=== PATIENT | female | born 1980 | race Two or more races ===

== ENCOUNTER 2019-05-26 16:48 | Emergency (ER) | payer MEDICARE ==
[2019-05-26] MEDS ORDERED: Haloperidol INJ IV/IM* 5 MG/ML AMP IM ONE ×2 (16:54→23:16)
[2019-05-26] MEDS ORDERED: LORazepam INJ* 2 MG/ML 1 ML VIAL IM ONE ×2 (16:54→23:16)
[2019-05-26] MEDS ORDERED: Lorazepam PYXIS KEY PRN (16:54)
[2019-05-26] MEDS ORDERED: Lorazepam PYXIS KEY ONE (17:01)
[2019-05-26] MEDS ORDERED: diPHENhydraMINE IV* 50 MG/ML 1 ml VIAL (BENADRYL) IM ONE ×2 (17:03→23:16)
[2019-05-26] MEDS ORDERED: diPHENhydraMINE IV* 50 MG/ML 1 ml VIAL (BENADRYL) ONE (17:04)
--- NOTE | 2019-05-26 17:10 | ED ---
Psychiatric Complaint - HPI Summary HPI Summary: 39 y/o female presented to [facility] after an episode in which she ran around outside naked screaming. Per her significant other, the two watched Star Wars together, went home, ate, and then the episode began. She has reportedly been up for days without sleeping and has a Hx of bipolar disorder for which she has been off her medication for days. Pt is a level 5 caveat secondary to AMS. - History Of Current Complaint Chief Complaint: EDAltMentalStatus Hx Obtained From: Other: - significant other Hx From Patient Unobtainable Due To: Altered Mental Status - Level 5 Caveat Onset/Duration: Sudden Onset, Still Present Character: Manic Aggravating Factor(s): Nothing Alleviating Factor(s): Nothing Related History: Positive For: Prior Psychiatric Issues - bipolar disorder - Allergies/Home Medications Home Medications: Home Medications Carvedilol [Coreg] 12.5 mg PO BID 05/26/19 [History Confirmed 05/26/19] Divalproex ER TAB(*) [Depakote ER TAB(*)] 1,000 mg PO DAILY 05/26/19 [History Confirmed 05/26/19] Furosemide [Lasix] 80 mg PO DAILY 05/26/19 [History Confirmed 05/26/19] Lisinopril [Zestril] 10 mg PO DAILY 05/26/19 [History Confirmed 05/26/19] Pravastatin Sodium 40 mg PO DAILY 05/26/19 [History Confirmed 05/26/19] Sitagliptin Phosphate [Januvia] 100 mg PO DAILY 05/26/19 [History Confirmed 09/09] Spironolactone 25 mg PO DAILY 05/26/19 [History Confirmed 05/26/19] buPROPion TAB* [Wellbutrin TAB*] 75 mg PO DAILY 05/26/19 [History Confirmed 09/09] glipiZIDE [Glipizide ER] 5 mg PO DAILY 05/26/19 [History Confirmed 05/26/19] PMH/Surg Hx/FS Hx/Imm Hx Endocrine/Hematology History: Reports: Hx Diabetes Psychiatric History: Reports: Hx Bipolar Disorder - Surgical History Surgical History: Unable to Obtain/Confirm Surgery Procedure, Year, and Place: Level 5 Caveat patient under AMS Infectious Disease History: No Infectious Disease History: Denies: Traveled Outside the [place] in Last 30 Days - Family History Known Family History: Positive: Unknown - Patient is a level 5 caveat secondary to AMS - Social History Alcohol Use: Unknown Substance Use Type: Reports: Other - Level 5 Caveat patient under AMS Substance Use Comment - Amount & Last Used: unknown Smoking Status (MU): Unknown if Ever Smoked - Level 5 Caveat patient under AMS Review of Systems Positive: Other - manic, AMS All Other Systems Reviewed And Are Negative: No - Comments Additional Review of Systems Comments: Level 5 Caveat secondary to AMS, bipolar barbie Physical Exam - Summary Physical Exam Summary: Limited exam secondary to pt agitation General: Well appearing, agitated, yelling HEENT: PERRL Cardiovascular: Skin is well perfused Pulmonary: No respiratory distress, no tachypnea Abdomen: Non-distended Skin: Warm, pink, dry MSK: No edema Psych: tangential, hyperverbal Neuro: A&Ox3 Triage Information Reviewed: Yes Vital Signs On Initial Exam: Initial Vitals Temp Pulse Resp BP Pulse Ox 98.9 F 100 20 187/106 99 05/26/19 16:53 05/26/19 16:53 05/26/19 16:53 05/26/19 16:53 05/26/19 16:53 Vital Signs Reviewed: Yes Completion Of Physical Exam Limited Due To: Altered Mental Status, Level 5 Procedures - Sedation Patient Received Moderate/Deep Sedation with Procedure: No Diagnostics - Vital Signs Vital Signs Temp Pulse Resp BP Pulse Ox 05/26/19 16:53 98.9 F 100 20 187/106 99 - Laboratory Result Diagrams: 05/26/19 17:45 05/26/19 17:45 Lab Statement: Any lab studies that have been ordered have been reviewed, and results considered in the medical decision making process. - EKG 2104 Cardiac Rate: NL - 92 bpm EKG Rhythm: Sinus Rhythm Summary of EKG Findings: An EKG at 2104 reveals normal sinus rhythm at 92 bpm. Significant artifact limiting interpretation. ED physician has reviewed and interpreted this report. Re-Evaluation - Re-Evaluation First Eval Re-Evaluation Time: 17:10 Comment: Patient administered chemical restraint (Benadryl, Ativan, Haldol). Second Eval Re-Evaluation Time: 17:30 Comment: Pt has been medically cleared for MHE. Third Eval Re-Evaluation Time: 17:40 Comment: Patient is resting following chemcial restraint. Fourth Eval Re-Evaluation Time: 19:46 Comment: Pt is climbing on the bed and acting out Course/Dx - Course Course Of Treatment: 39-year-old female with a history of bipolar disorder presents with barbie. Patient agitated on arrival throwing herself on the ground and got a sharp spitting up wall. Patient is given Haldol, Benadryl, Ativan for patient safety. labs notable for hyperglycemia, hx DM. Cleared for MHE - Differential Dx/Clinical Impression Provider Diagnosis: Bipolar disorder - Physician Notifications Discussed Care Of Patient With: Christiano Latham Time Discussed With Above Provider: 20:36 Instructed by Provider To: Other - Pt case was discussed with Dr. Latham, who recommends transfer as there are no beds available for admission at [facility]. Patient Is Medically Stable For: Transfer Reason For Transfer: No beds available. Discharge ED - Sign-Out/Discharge Documenting (check all that apply): Sign-Out Patient Signing out patient TO: Leyla Mckinley - Patient is a sign-out to Dr. Leyla Mckinley MD, at change of shift at 2200 on 05/26/19, pending transfer to higher facility of care for mental health treatment. - Discharge Plan Condition: Stable Disposition: TRANS HIGHER LVL OF CARE FAC Referrals: No Primary Care Phys,NOPCP [Primary Care Provider] - - Billing Disposition and Condition Condition: STABLE Disposition: Trans Higher Lvl of Care Fac - Attestation Statements Document Initiated by Óscar: Yes Documenting Scribe: Carly Esparza Provider For Whom Óscar is Documenting (Include Credential): Dr. Syed Leal MD Scribe Attestation: Carly Johnson scribed for Dr. Syed Leal MD on 05/26/19 at 2145. Scribe Documentation Reviewed: Yes Provider Attestation: The documentation as recorded by the Carly cruz accurately reflects the service I personally performed and the decisions made by me, Dr. Syed Leal MD Status of Scribe Document: Viewed - Assessment for Patient Restraint Evaluation of the Patient's Immediate Situation: Patient agitated, yelling, throwing self on floor naked. Unable to redirect Patient's Reaction to Intervention: Patient calm and cooperative after medications Patient's Medication and Behavioral Condition: given haldol, benadryl, ativan
[2019-05-26 17:51] LABS: ABS Basophils 0.1 10^3/ul (0-0.2); ABS Eosinophils 0.1 10^3/ul (0-0.6); ABS Lymphocytes 2.3 10^3/ul (1.0-4.8); ABS Monocytes 0.5 10^3/ul (0-0.8); ABS Neutrophils 6.1 10^3/ul (1.5-7.7); Eosinophil % 1.2 %; Hematocrit 35 % (35-47); Lymphocyte % 25.5 %; Mean Corpuscular HGB Conc 34 g/dL (31-36); Mean Corpuscular Hemoglobin 28 pg (27-31); Mean Corpuscular Volume 83 fL (80-97); Mean Platelet Volume 9.5 fL (7.4-10.4); Nucleated Red Blood Cells % 0.1; Platelet Count 207 10^3/uL (150-450); Red Blood Count 4.25 10^6 /uL (3.70-4.87); Red Cell Distribution Width 14 % (10-15); White Blood Count 9.2 10^3/uL (3.5-10.8)
--- OUTSIDE RECORDS SUMMARY | 2019-05-26 17:53 | XMS REPORT ---
:1980 Author Organization [facility] Care Team Providers Name Role Phone Taye Heriberto Primary Care Physician Unavailable Allergies, Adverse Reactions, Alerts Allergy Code CodeSystem Reaction Severity Criticality Status Start Substance Date Moderate Medications Medication Medication Medication Start Stop Route Dose Status Fill Code CodeSystem Date Date Instructions Abilify [id number] RxNorm 2019-02 IM 400 mg active Inject 1 ml Maintena -16 1 intramuscularly suspens every four weeks ion,ext for 28 day(s) ended rel syring every four weeks Problems Problem Name Code CodeSystem Alternate Alternate Start End Status Narrative Code CodeSystem Date Date Post-traumat [id number] SNOMED-CT Active ic stress 8-13 disorder, unspecified Post-traumat 94953549 SNOMED-CT Active ic stress 8-13 disorder, unspecified Bipolar 56305789 SNOMED-CT Active affective 8-13 disorder, unspecified Bipolar 15533323 SNOMED-CT Active affective 8-13 disorder, unspecified Relevant diagnostic tests/laboratory data Narrative No Information Procedures Procedure Code CodeSystem Target Date of Status Service Device Device Device Name Site Procedure Delivery Code Name UID Location Psychotherap [id number] SNOMED-CT () 2019-02-16 complete Mental y, 45 04 d Health- minutes with [address], [id number] [id number] Psychotherap [id number] SNOMED-CT () 2019-02-21 complete Mental y, 45 04 d Health- minutes with [address], [id number] [phone] Psychotherap [id number] SNOMED-CT () 2019-01-10 complete Mental y, 45 04 d Health- minutes with [address], [id number] [id number] Psychotherap [id number] SNOMED-CT () 2019-03-15 complete Mental y, 45 04 d Health- minutes with [place] patient [address], [id number] [phone] Psychiatric [id number] SNOMED-CT () 2019-02-23 complete Mental diagnostic 85 d Health- evaluation [place] with medical [address], [id number] [id number] Comprehensiv 155084 SNOMED-CT () 2019-02-23 complete Mental e medication 0 d Health- services, [place] per [address] [place] [address], [id number] [phone] Comprehensiv 611859 SNOMED-CT () 2019-03-23 complete Mental e medication 0 d Health- services, [place] per [facility] minutes [address] [place] [address], [id number] [phone] SNOMED-CT () 2019-02-19 complete Mental d Health- [address], [id number] [phone] SNOMED-CT () 2019-02-19 complete Mental d Health- [address], [id number] [phone] SNOMED-CT () 2019-02-19 complete Mental d Health[address], [id number] [phone] SNOMED-CT () 2019-02-19 complete Mental d Health[address], [id number] [id number] SNOMED-CT () 2019-02-19 complete Mental d Health[address], [id number] [id number] SNOMED-CT () 2019-02-19 complete Mental d Health[address], [id number] [phone] SNOMED-CT () 2019-02-19 complete Mental d Health[address], [id number] [id number] SNOMED-CT () 2019-02-19 complete Mental d Health[address], [id number] [phone] SNOMED-CT () 2019-02-19 complete Mental d [address], [id number] [id number] SNOMED-CT () 2019-02-19 complete Mental d [address], [id number] [phone] SNOMED-CT () 2019-02-19 [facility] Mental d [address], [phone] [phone] SNOMED-CT () 2019-02-19 [facility] Mental d [address], [id number] [phone] SNOMED-CT () 2019-02-19 [facility] Mental d [address], [id number] [id number] SNOMED-CT () 2019-01-29 [facility] Mental d [address], [id number] [phone] SNOMED-CT () 2019-02-19 [facility] Mental d [address], [id number] [id number] SNOMED-CT () 2019-01-02 [facility] Mental d [address], [id number] [phone] Encounters/Encounter Diagnoses Encounter Encounter Diagnosis Diagnosis Diagnosis Date of Service Name Code Code Name CodeSystem Diagnosis Delivery Location PROS PROS [id number] Bipolar SNOMED-CT 2019-04-09 Behavioral cumulative affective Health disorder, Clinic , , unspecified , Vital Signs No Information Social History Element Description Description Start End Code CodeSystem AdditionalInfo Date Date SexAssignedAtBirth Female 0 F AdministrativeGender 13 Hospital Discharge Instructions Reason For Referral Medical Equipment FDA Assessments
[2019-05-26 18:08] LABS: ALT 15 U/L (7-52); AST 17 U/L (13-39); Albumin 3.9 g/dL (3.2-5.2); Alkaline Phosphatase 76 U/L (34-104); Anion Gap 12 mmol/L (2-11); BUN/Creatinine Ratio 14.6 (8-20); Blood Urea Nitrogen 12 mg/dL (6-24); CO2 Carbon Dioxide 22 mmol/L (22-32); Calcium 9.4 mg/dL (8.6-10.3); Chloride 100 mmol/L (101-111); EGFR Non-African American 76.8 (>60); Globulin 3.8 g/dL (2-4); Glucose 369 mg/dL (70-100); Potassium 3.7 mmol/L (3.5-5.0); Sodium 134 mmol/L (135-145); Total Protein 7.7 g/dL (6.4-8.9)
[2019-05-26 18:14] LABS: HCG Pregnancy < 0.60 mIU/mL
[2019-05-26 19:03] LABS: Acetaminophen < 15 mcg/mL; Alcohol < 10 mg/dL (<10); Salicylate < 2.50 mg/dL (<30)
[2019-05-26 19:17] LABS: TSH (Thyroid Stimulating Horm) 1.27 mcIU/mL (0.34-5.60)
[2019-05-26] MEDS ORDERED: glipiZIDE TAB* 5 MG PO ONE (20:38)
[2019-05-26] MEDS ORDERED: Divalproex ER TAB(*) 500 MG PO SCH (21:00)
--- NOTE | 2019-05-26 21:59 | ED ---
Progress - Progress Note Progress Note: Patient is received as a sign-out from Dr. Leal to Dr. Mckinley at 05/26/19 2200 shift change pending transfer of this mental health patient. 05 - [facility] accepted [facility] for transfer, requests ED provider discuss patient's case with [facility]. 527 - Discussed patient's case with Dr. Elizabeth Boyer, Dr. Boyer accepts for ED to ED transfer. Re-Evaluation - Re-Evaluation First Eval Re-Evaluation Time: 17:10 Comment: Patient administered chemical restraint (Benadryl, Ativan, Haldol). Second Eval Re-Evaluation Time: 17:30 Comment: Pt has been medically cleared for MHE. Third Eval Re-Evaluation Time: 17:40 Comment: Patient is resting following chemcial restraint. Fourth Eval Re-Evaluation Time: 19:46 Comment: Pt is climbing on the bed and acting out Fifth Eval Re-Evaluation Time: 23:30 Comment: Patient is escalating with bizarre behaviors and with aggressive outburts and uncoopeartive. She has taken all of her clothes off and trying to close curtain. Screaming inappropriate things. Course/Dx - Course Course Of Treatment: Patient is received as a sign-out from Dr. Leal to Dr. Mckinley at 05/26/19 2200 shift change pending transfer of this mental health patient. - Diagnoses Provider Diagnoses: Bipolar disorder - Provider Notifications Discussed Care Of Patient With: Elizabeth Boyer Time Discussed With Above Provider: 05:28 Instructed by Provider To: Other - 527 - Discussed patient's case with Dr. Elizabeth Boyer, Dr. Boyer accepts for ED to ED transfer. Reason For Transfer: No beds available. Discharge ED - Sign-Out/Discharge Documenting (check all that apply): Patient Departure - transfer , Receiving Sign-Out Receiving patient FROM: Syed Leal - Discharge Plan Condition: Stable Disposition: PSYCHIATRIC FACILITY-OTHER Referrals: No Primary Care Phys,NOPCP [Primary Care Provider] - - Billing Disposition and Condition Condition: STABLE Disposition: Psychiatric Facility Other - Attestation Statements Document Initiated by Scribe: Yes Documenting Scribe: SABRA COLE Provider For Whom Scribe is Documenting (Include Credential): ARGENTINA MCKINLEY MD Scribe Attestation: I, SABRA COLE, scribed for ARGENTINA MCKINLEY MD on 05/27/19 at 0607. Scribe Documentation Reviewed: Yes Provider Attestation: The documentation as recorded by the scribeSABRA accurately reflects the service I personally performed and the decisions made by me, ARGENTINA MCKINLEY MD Status of Scribe Document: Viewed - Assessment for Patient Restraint Evaluation of the Patient's Immediate Situation: Patient is escalating with bizarre behaviors and with aggressive outburts and uncoopeartive. She has taken all of her clothes off and trying to close curtain. Screaming inappropriate things. Patient's Reaction to Intervention: Patient sedated effectively and resting comfortably. Patient's Medication and Behavioral Condition: Acutely manic Evaluate Need for Continued Restraint: Terminate - none needed at this time
[2019-05-26 23:13] LABS: Urine Appearance Cloudy; Urine Bilirubin Negative (Negative); Urine Blood Negative (Negative); Urine Color Yellow; Urine Glucose 3+(>=500 mg/dL) (Negative); Urine Ketones 1+ (Negative); Urine Nitrite Negative (Negative); Urine Protein 1+(30 mg/dL) (Negative); Urine Specific Gravity 1.032 (1.010-1.030); Urine Urobilinogen Negative (Negative)
[2019-05-26 23:31] LABS: Urine Benzodiazepine Screen None Detected (None Detect); Urine Opiates Screen None Detected (None Detect)
[2019-05-26 23:32] LABS: Urine Bacteria Absent (Absent); Urine Red Blood Cell Trace(0-2/hpf) (Absent); Urine Squamous Epithelial Cell Present (Absent); Urine White Blood Cell Trace(0-5/hpf) (Absent)
[2019-05-27 06:55] VITALS: BP 154/86
== END 2019-05-27 06:54 ==
LOC: ED 16:48
DX: F31.9 Bipolar disorder, unspecified (principal); Z79.899 Other long term (current) drug therapy; E11.9 Type 2 diabetes mellitus without complications; R41.82 Altered mental status, unspecified
CPT/HCPCS: 36415; 80053; 80307; 80320; 80329; 81003; 81015; 84443; 84702; 85025; 87086; 96372; 99285; A9270-GY; G0480; J1200; J1630; J2060

== ENCOUNTER 2019-06-19 17:27 | Inpatient (IN) | payer MEDICARE ==
--- OUTSIDE RECORDS SUMMARY | 2019-06-19 17:45 | XMS REPORT | Summary of Care ---
:1980 Demographics Phone Unavailable Preferred Language Unknown Marital Status Unknown Yazidi Affiliation Unknown Race Unknown Ethnic Group Unknown Author Organization [facility] Address [address] [place] [address] Care Team Providers Name Role Phone Unavailable Primary Care Provider Unavailable Encounter Details Date Type Department Care Team Description 05/26/2019 Hospital Encounter [address] [address] Allergies Not on Filedocumented as of this encounter (statuses as of 06/10/2019) Medications Not on filedocumented as of this encounter (statuses as of 06/10/2019) Active Problems Not on filedocumented as of this encounter (statuses as of 06/10/2019) Social History Tobacco Use Types Packs/Day Years Used Date Never Assessed Sex Assigned at Date Recorded Not on file Job Start Date Occupation Industry Not on file Not on file Not on file Travel History Travel Start Travel End No recent travel history available. documented as of this encounter Last Filed Vital Signs Not on filedocumented in this encounter Plan of Treatment Not on filedocumented as of this encounter Results Not on filedocumented in this encounter
--- OUTSIDE RECORDS SUMMARY | 2019-06-19 17:45 | XMS REPORT ---
:1980 Author Organization [facility] Care Team Providers Name Role Phone Taye Heriberto Primary Care Physician Unavailable Allergies, Adverse Reactions, Alerts Allergy Code CodeSystem Reaction Severity Criticality Status Start Substance Date Moderate Medications Medication Medication Medication Start Stop Route Dose Status Fill Code CodeSystem Date Date Instructions Abilify [id number] RxNorm 2019-02 IM 400 mg active Inject 1 ml Maintena -16 1 intramuscularly suspens every four weeks ion,ext for 28 day(s) ended rel syring every four weeks Problems Problem Name Code CodeSystem Alternate Alternate Start End Status Narrative Code CodeSystem Date Date Bipolar 05714373 SNOMED-CT Active affective 8-13 disorder, unspecified Bipolar 90303384 SNOMED-CT Active affective 8-13 disorder, unspecified Post-traumat 46751969 SNOMED-CT Active ic stress 8-13 disorder, unspecified Post-traumat 85990119 SNOMED-CT Active ic stress 8-13 disorder, unspecified Relevant diagnostic tests/laboratory data Narrative No Information Procedures Procedure Code CodeSystem Target Date of Status Service Device Device Device Name Site Procedure Delivery Code Name UID Location Psychotherap [id number] SNOMED-CT () 2019-02-16 complete Mental y, 45 04 d Health- minutes with [address], [id number] [phone] Psychotherap 206331 SNOMED-CT () 2019-02-21 complete Mental y, 45 04 d Health- minutes with [address], [phone] [phone] Psychotherap 734505 SNOMED-CT () 2019-01-10 complete Mental y, 45 04 d Health- minutes with [address], [id number] [phone] Psychotherap 692584 SNOMED-CT () 2019-06-05 complete Mental y, 45 04 d Health- minutes with [place] patient [address], [phone] [phone] Psychotherap 004829 SNOMED-CT () 2019-03-15 complete Mental y, 45 04 d Health- minutes with [place] patient [address], [phone] Psychiatric 302734 SNOMED-CT () 2019-02-23 complete Mental diagnostic 85 d Health- evaluation [place] with medical [address], [id number] [phone] Comprehensiv 748509 SNOMED-CT () 2019-02-23 complete Mental e medication 0 d Health- services, [place] per [address] [place] [address], [id number] [phone] Comprehensiv 354264 SNOMED-CT () 2019-03-23 complete Mental e medication 0 d Health- services, [place] [address], [phone] [phone] Comprehensiv 024097 SNOMED-CT () 2019-04-24 complete Mental e medication 0 d Health- services, [place] per [address] [place] [address], [id number] [phone] Comprehensiv 522285 SNOMED-CT () 2019-05-31 complete Mental e medication 0 d Health- services, [place] [address], [id number] [phone] SNOMED-CT () 2019-02-19 complete Mental d Health- [address], [id number] [phone] SNOMED-CT () 2019-02-19 complete Mental d Health- [address], [id number] [phone] SNOMED-CT () 2019-02-19 complete Mental d Health- [address], 655794258 [phone] SNOMED-CT () 2019-02-19 complete Mental d Health- [address], [phone] [phone] SNOMED-CT () 2019-02-19 complete Mental d Health[address], 195644368 [phone] SNOMED-CT () 2019-02-19 complete Mental d [address], 329206646 [phone] SNOMED-CT () 2019-03-22 complete Mental d Health[address], 448178719 [phone] SNOMED-CT () 2019-03-22 complete Mental d [address], 621555290 [phone] SNOMED-CT () 2019-03-22 complete Mental d [address], 666037721 [phone] SNOMED-CT () 2019-03-22 complete Mental d [address], 803566247 [phone] SNOMED-CT () 2019-03-22 complete Mental d Health[address], 267098548 [phone] SNOMED-CT () 2019-03-22 complete Mental d [address], [id number] [phone] SNOMED-CT () 2019-03-22 complete Mental d [address], 613116736 [phone] SNOMED-CT () 2019-03-22 complete Mental d Health[address], 400094188 [phone] SNOMED-CT () 2019-03-22 complete Mental d Health[address], 588590816 [phone] SNOMED-CT () 2019-03-22 complete Mental d [address], 371210864 [id number] SNOMED-CT () 2019-03-22 complete Mental d [address], [id number] [phone] SNOMED-CT () 2019-03-22 complete Mental d Health[address], 195341475 [phone] SNOMED-CT () 2019-03-22 complete Mental d Health[address], 315345747 [phone] SNOMED-CT () 2019-03-22 complete Mental d Health[address], 151873451 [phone] SNOMED-CT () 2019-03-22 complete Mental d Health[address], 561545166 [id number] SNOMED-CT () 2019-03-22 complete Mental d [address], 858139888 [phone] SNOMED-CT () 2019-02-19 complete Mental d Health[address], 837560262 [phone] SNOMED-CT () 2019-03-22 complete Mental d Health[address], [id number] [phone] SNOMED-CT () 2019-03-22 complete Mental d [address], 311678314 [phone] SNOMED-CT () 2019-03-22 complete Mental d Health[address], 126842548 [phone] SNOMED-CT () 2019-03-22 complete Mental d Health[address], 580175359 [phone] SNOMED-CT () 2019-03-22 complete Mental d Health[address], 284675189 [phone] SNOMED-CT () 2019-02-19 complete Mental d [address], 707874762 [phone] SNOMED-CT () 2019-02-19 complete Mental d Health- [address], 182227744 [phone] SNOMED-CT () 2019-02-19 complete Mental d [address], 473266950 [phone] SNOMED-CT () 2019-02-19 complete Mental d [address], 497917317 [phone] SNOMED-CT () 2019-02-19 complete Mental d [address], 956861917 [phone] SNOMED-CT () 2019-02-19 [facility] Mental d [address], [id number] [phone] SNOMED-CT () 2019-01-29 complete Mental d [address], 697595369 [phone] SNOMED-CT () 2019-04-09 complete Mental d [address], 579289189 [phone] SNOMED-CT () 2019-02-19 [facility] Mental d [address], 432468838 [phone] SNOMED-CT () 2019-03-22 [facility] Mental d [address], [id number] [phone] SNOMED-CT () 2019-01-02 [facility] Mental d [address], 119314061 [phone] Encounters/Encounter Diagnoses Encounter Encounter Diagnosis Diagnosis Name Diagnosis Date of Service Name Code Code CodeSystem Diagnosis Delivery Location Non-Billable 20913 [id number] Bipolar SNOMED-CT 2019-06-13 Behavioral affective Health disorder, Clinic , , unspecified , Vital Signs No Information Social History Element Description Description Start End Code CodeSystem AdditionalInfo Date Date SexAssignedAtBirth Female F AdministrativeGender 9-13 Hospital Discharge Instructions Reason For Referral Medical Equipment FDA Assessments
--- OUTSIDE RECORDS SUMMARY | 2019-06-19 17:45 | XMS REPORT ---
:1980 Author Organization [facility] Care Team Providers Name Role Phone Taye Heriberto Primary Care Physician Unavailable Allergies, Adverse Reactions, Alerts Allergy Code CodeSystem Reaction Severity Criticality Status Start Substance Date Moderate Medications Medication Medication Medication Start Stop Route Dose Status Fill Code CodeSystem Date Date Instructions Abilify [id number] RxNorm 2019-02 IM 400 mg active Inject 1 ml Maintena -16 1 intramuscularly suspens every four weeks ion,ext for 28 day(s) ended rel syring every four weeks Problems Problem Name Code CodeSystem Alternate Alternate Start End Status Narrative Code CodeSystem Date Date Bipolar [id number] SNOMED-CT Active affective 8-13 disorder, unspecified Post-traumat 92730192 SNOMED-CT Active ic stress 8-13 disorder, unspecified Post-traumat 25021626 SNOMED-CT Active ic stress 8-13 disorder, unspecified Bipolar 82709803 SNOMED-CT Active affective 8-13 disorder, unspecified Relevant diagnostic tests/laboratory data Narrative No Information Procedures Procedure Code CodeSystem Target Date of Status Service Device Device Device Name Site Procedure Delivery Code Name UID Location Psychotherap [id number] SNOMED-CT () 2019-02-16 complete Mental y, 45 04 d Health- minutes with [address], [id number] [id number] Psychotherap [id number] SNOMED-CT () 2019-02-21 complete Mental y, 45 04 d Health- minutes with [address], [id number] [id number] Psychotherap 525010 SNOMED-CT () 2019-01-10 complete Mental y, 45 04 d Health- minutes with [address], [id number] [phone] Psychotherap [id number] SNOMED-CT () 2019-03-15 complete Mental y, 45 04 d Health- minutes with [facility] patient [address], [id number] [id number] Psychiatric [id number] SNOMED-CT () 2019-02-23 complete Mental diagnostic 85 d Health- evaluation [place] [facility] [place] [address], [id number] [id number] Comprehensiv 480971 SNOMED-CT () 2019-02-23 complete Mental e medication 0 d Health- services, [place] per [facility] [address] [place] [address], [id number] [phone] Comprehensiv 265149 SNOMED-CT () 2019-03-23 complete Mental e medication 0 d Health- services, [place] per 15 [facility] minutes [address] [place] [address], [id number] [phone] Comprehensiv 795381 SNOMED-CT () 2019-04-24 complete Mental e medication 0 d Health- services, [facility] per [address], [id number] [id number] SNOMED-CT () 2019-02-19 complete Mental d Health- [address], [id number] [phone] SNOMED-CT () 2019-02-19 complete Mental d Health- [address], [id number] SNOMED-CT () 2019-02-19 complete Mental d Health- [address], [id number] [phone] SNOMED-CT () 2019-02-19 complete Mental d Health- [address], [id number] [id number] SNOMED-CT () 2019-02-19 complete Mental d Health[address], [id number] SNOMED-CT () 2019-02-19 complete Mental d Health[address], [id number] SNOMED-CT () 2019-03-22 complete Mental d Health[address], [place], [id number] [phone] SNOMED-CT () 2019-03-22 complete Mental d Health[address], [id number] [id number] SNOMED-CT () 2019-03-22 complete Mental d [address], [id number] SNOMED-CT () 2019-03-22 complete Mental d Health[address], [id number] [phone] SNOMED-CT () 2019-03-22 complete Mental d [address], [id number] [phone] SNOMED-CT () 2019-03-22 complete Mental d [address], [id number] [phone] SNOMED-CT () 2019-03-22 complete Mental d Health[address], [id number] SNOMED-CT () 2019-03-22 complete Mental d [address], [id number] [id number] SNOMED-CT () 2019-03-22 complete Mental d [address], [id number] [phone] SNOMED-CT () 2019-03-22 complete Mental d Health[address], [id number] [phone] SNOMED-CT () 2019-03-22 complete Mental d [address], [id number] [id number] SNOMED-CT () 2019-03-22 complete Mental d [address], [id number] [id number] SNOMED-CT () 2019-03-22 complete Mental d [address], [id number] [id number] SNOMED-CT () 2019-03-22 complete Mental d Health[address], [id number] [id number] SNOMED-CT () 2019-03-22 complete Mental d Health[address], [id number] [phone] SNOMED-CT () 2019-03-22 complete Mental d Health[address], [id number] [id number] SNOMED-CT () 2019-02-19 complete Mental d Health[address], [id number] [id number] SNOMED-CT () 2019-03-22 complete Mental d [address], [id number] [id number] SNOMED-CT () 2019-03-22 complete Mental d [address], [id number] [id number] SNOMED-CT () 2019-03-22 complete Mental d Health[address], [id number] [id number] SNOMED-CT () 2019-03-22 complete Mental d [address], [id number] [phone] SNOMED-CT () 2019-03-22 complete Mental d [address], [id number] [phone] SNOMED-CT () 2019-02-19 complete Mental d Health[address], [id number] [id number] SNOMED-CT () 2019-02-19 complete Mental d Health[address], [id number] [phone] SNOMED-CT () 2019-02-19 complete Mental d Health[address], [id number] [id number] SNOMED-CT () 2019-02-19 complete Mental d Health[address], [id number] [id number] SNOMED-CT () 2019-02-19 complete Mental d [address], [id number] [id number] SNOMED-CT () 2019-02-19 complete Mental d [address], [id number] [phone] SNOMED-CT () 2019-04-09 [facility] Mental d [address], [id number] [phone] SNOMED-CT () 2019-01-29 complete Mental d [address], [id number] [phone] SNOMED-CT () 2019-02-19 [facility] Mental d [address], [id number] [phone] SNOMED-CT () 2019-03-22 [facility] Mental d [address], [id number] [id number] SNOMED-CT () 2019-01-02 [facility] Mental d [address], [id number] [phone] Encounters/Encounter Diagnoses Encounter Encounter Diagnosis Diagnosis Diagnosis Date of Service Name Code Code Name CodeSystem Diagnosis Delivery Location [facility] [id number] Bipolar SNOMED-CT 2019-04-26 Behavioral cumulative affective Health disorder, Clinic , , unspecified , Vital Signs No Information Social History Element Description Description Start End Code CodeSystem AdditionalInfo Date Date SexAssignedAtBirth Female F AdministrativeGender 02-02 Hospital Discharge Instructions Reason For Referral Medical Equipment FDA Assessments
--- NOTE | 2019-06-19 18:09 | ED ---
Medical Screening - HPI Summary HPI Summary: Patient presents with progressive thoughts of SI and depression. Patient has history of bipolar and depression, states she has not been fully compliant with her meds which he has episodes. Denies active self-harm currently. Denies EtOH or recreational drug use, any symptoms of illness or pain. Medical history is DM - History of Current Complaint Chief Complaint: EDSuicidal Stated Complaint: MHE PER PT Time Seen by Provider: 06/19/19 18:06 Onset/Duration: Started Weeks Ago Severity: moderate PMH/Surg Hx/FS Hx/Imm Hx Endocrine/Hematology History: Reports: Hx Diabetes Cardiovascular History: Denies: Hx Pacemaker/ICD History: Denies: Hx Dialysis Sensory History: Denies: Hx Eye Prosthesis Opthamlomology History: Denies: Hx Legally Blind EENT History: Denies: Hx Deafness Psychiatric History: Reports: Hx Depression, Hx Post Traumatic Stress Disorder, Hx Bipolar Disorder Denies: Hx Eating Disorder, Hx Schizophrenia, Hx Suicide Attempt - Surgical History Surgery Procedure, Year, and Place: Level 5 Caveat patient under AMS Infectious Disease History: No Infectious Disease History: Denies: Traveled Outside the [place] in Last 30 Days - Family History Known Family History: Positive: Unknown - Patient is a level 5 caveat secondary to AMS - Social History Alcohol Use: Unknown Substance Use Type: Reports: Other - Level 5 Caveat patient under AMS Substance Use Comment - Amount & Last Used: unknown Smoking Status (MU): Unknown if Ever Smoked - Level 5 Caveat patient under AMS Review of Systems Constitutional: Negative Eyes: Negative ENT: Negative Cardiovascular: Negative Respiratory: Negative Gastrointestinal: Negative Genitourinary: Negative Musculoskeletal: Negative Skin: Negative Neurological: Negative Positive: Depressed All Other Systems Reviewed And Are Negative: Yes Physical Exam Triage Information Reviewed: Yes Vital Signs On Initial Exam: Initial Vitals Temp Pulse Resp BP Pulse Ox 97.8 F 70 18 151/93 97 06/19/19 17:27 06/19/19 17:27 06/19/19 17:27 06/19/19 17:27 06/19/19 17:27 Vital Signs Reviewed: Yes Appearance: Positive: Well-Appearing Skin: Positive: Warm Head/Face: Positive: Normal Head/Face Inspection Eyes: Positive: Normal Neck: Positive: Supple Respiratory/Lung Sounds: Positive: Clear to Auscultation Cardiovascular: Positive: Normal Abdomen Description: Positive: Nontender Musculoskeletal: Positive: Normal Neurological: Positive: Normal Psychiatric: Positive: Normal AVPU Assessment: Alert - Cristal Coma Scale Best Eye Response: 4 - Spontaneous Best Motor Response: 6 - Obeys Commands Best Verbal Response: 5 - Oriented Coma Scale Total: 15 Procedures - Sedation Patient Received Moderate/Deep Sedation with Procedure: No Diagnostics - Vital Signs Vital Signs Temp Pulse Resp BP Pulse Ox 06/19/19 17:27 97.8 F 70 18 151/93 97 - Laboratory Result Diagrams: 06/19/19 18:56 06/19/19 18:56 Lab Statement: Any lab studies that have been ordered have been reviewed, and results considered in the medical decision making process. Course/Dx - Course Course Of Treatment: Patient presents with progressive thoughts of SI and depression. Patient has history of bipolar and depression, states she has not been fully compliant with her meds which he has episodes. Denies active self- harm currently. Denies EtOH or recreational drug use, any symptoms of illness or pain. Medical history is DM. Vital signs within normal limits. CBC negative. BGL 444. Improved to 82 L normal saline and 4 units of regular insulin IV. Lactic acid initially 3.4, improved to 1.0 after 2 L normal saline. No indication for DKA. Mental health evaluation recommends admission. - Diagnoses Provider Diagnoses: Depressive disorder Discharge ED - Sign-Out/Discharge Documenting (check all that apply): Patient Departure - Discharge Plan Condition: Stable [facility] [place] Billing Disposition and Condition Condition: STABLE Disposition: Psychiatric Facility [facility]
[2019-06-19 19:15] LABS: ABS Basophils 0.1 10^3/ul (0-0.2); ABS Eosinophils 0.2 10^3/ul (0-0.6); ABS Lymphocytes 2.7 10^3/ul (1.0-4.8); ABS Monocytes 0.6 10^3/ul (0-0.8); ABS Neutrophils 4.5 10^3/ul (1.5-7.7); Eosinophil % 2.3 %; Hematocrit 36 % (35-47); Hemoglobin 12.3 g/dL (12.0-16.0); Lymphocyte % 33.4 %; Mean Corpuscular HGB Conc 34 g/dL (31-36); Mean Corpuscular Hemoglobin 28 pg (27-31); Mean Corpuscular Volume 82 fL (80-97); Mean Platelet Volume 9.7 fL (7.4-10.4); Nucleated Red Blood Cells % 0.2; Platelet Count 169 10^3/uL (150-450); Red Cell Distribution Width 13 % (10-15); White Blood Count 8.1 10^3/uL (3.5-10.8)
[2019-06-19 19:25] LABS: Albumin 3.8 g/dL (3.2-5.2); Anion Gap 9 mmol/L (2-11); CO2 Carbon Dioxide 28 mmol/L (22-32); Calcium 9.5 mg/dL (8.6-10.3); Chloride 94 mmol/L (101-111); Potassium 4.3 mmol/L (3.5-5.0); Sodium 131 mmol/L (135-145)
[2019-06-19 19:31] LABS: ALT 9 U/L (7-52); AST 11 U/L (13-39); Alkaline Phosphatase 74 U/L (34-104); BUN/Creatinine Ratio 14.6 (8-20); Blood Urea Nitrogen 12 mg/dL (6-24); EGFR Non-African American 76.8 (>60); Glucose 432 mg/dL (70-100); Total Protein 7.8 g/dL (6.4-8.9)
[2019-06-19 20:11] LABS: Acetaminophen < 15 mcg/mL; Alcohol < 10 mg/dL (<10); Salicylate < 2.50 mg/dL (<30)
[2019-06-19] MEDS ORDERED: NS 0.9% 1000 ML** 1,000 ML IV ONE ×2 (20:57)
[2019-06-19 21:08] LABS: Urine Appearance Clear; Urine Bilirubin Negative (Negative); Urine Blood Negative (Negative); Urine Color Straw; Urine Glucose 3+(>=500 mg/dL) (Negative); Urine Ketones Negative (Negative); Urine Nitrite Negative (Negative); Urine Protein Negative (Negative); Urine Specific Gravity 1.017 (1.010-1.030); Urine Urobilinogen Negative (Negative)
[2019-06-19 21:12] LABS: Urine Bacteria Absent (Absent); Urine Red Blood Cell Absent (Absent); Urine Squamous Epithelial Cell Present (Absent); Urine White Blood Cell Trace(0-5/hpf) (Absent)
[2019-06-19 21:23] LABS: Urine Benzodiazepine Screen None Detected (None Detect); Urine Opiates Screen None Detected (None Detect)
[2019-06-20] MEDS ORDERED: Insulin REGULAR(*) 1 UNITS UNIT IV PUSH ONE (00:08)
--- NOTE | 2019-06-20 10:16 | ED ---
Course/Dx - Diagnoses Provider Diagnoses: Depressive disorder - Provider Notifications Time Discussed With Above Provider: 10:10 Instructed by Provider To: Other - Mental health research test engine evaluator reviewed case with Dr. Grullon, psychiatry. The patient will be admitted. Discharge ED - Sign-Out/Discharge Documenting (check all that apply): Patient Departure - Discharge Plan Condition: Stable Disposition: [facility] - Attestation Statements Document Initiated by Scribe: Yes Documenting Scribe: Rola Cardenas Provider For Whom Scribe is Documenting (Include Credential): Carlos Licea MD Scribe Attestation: IRola, scribed for Carlos Licea MD on 06/20/19 at 1802. Status of Scribe Document: Ready
[2019-06-20] MEDS ORDERED: Acetaminophen TAB* 325 MG PO PRN (10:43)
[2019-06-20] MEDS ORDERED: Al Hydrox/Mg Hydrox/Simet LIQ* 30 ML UDC PO PRN (10:43)
[2019-06-20] MEDS ORDERED: hydrOXYzine HCL TAB* 50 MG PO PRN (10:46)
[2019-06-20] MEDS ORDERED: traZODone TAB* 50 MG TAB PO PRN (10:46)
[2019-06-20] MEDS: CMCS: SitaGLIPtin (NF) 100 MG TAB PO SCH (14:18)
[2019-06-20] MEDS: Atorvastatin* 10 MG TAB PO SCH (14:19)
[2019-06-20] MEDS: Spironolactone TAB* 25 MG PO SCH (14:19)
[2019-06-20] MEDS: Divalproex DR TAB(*) 500 MG PO SCH ×2 (14:19→21:12)
[2019-06-20] MEDS: glipiZIDE TAB* 5 MG PO SCH (14:20)
[2019-06-20] MEDS: Lisinopril TAB* 10 MG PO SCH (14:20)
[2019-06-20] MEDS: Carvedilol TAB* 6.25 MG PO SCH ×2 (14:52→21:11)
[2019-06-20] MEDS ORDERED: Dextrose 50% Syringe 50 ML* 25 GM/50 ML SYRINGE IV PUSH PRN (16:22)
[2019-06-20] MEDS: Insulin LISPRO* 1 UNITS UNIT SUBCUT SCH ×2 (16:53→21:05)
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
--- NOTE | 2019-06-20 19:26 | CONS ---
HOSPITAL MEDICINE CONSULTATION REPORT: DATE OF CONSULT: 06/20/19 PROVIDER: Inés Caicedo NP ATTENDING PHYSICIAN: Dr. Latham. CONSULTING PHYSICIAN: Dr. Eleazar Reza (dictated by Inés Caicedo NP). REASON FOR CONSULT: Hyperglycemia. HISTORY OF PRESENT ILLNESS: Ms. Meng is a 39-year-old female with a past medical history significant for depression, PTSD, bipolar, type 2 diabetes and hypertension, who presented to the emergency room with suicidal ideation. The patient was seen and evaluated in the emergency room and recommended inpatient treatment for suicidal ideation, so she was admitted to the behavioral health unit. The patient does report a history of diabetes. Reports that she has not been taking her meds for the past several days. It was noted during this admission that the patient's blood sugars were elevated. Due to her hyperglycemia, Hospital Medicine was asked to see and evaluate her and give recommendations for management of her diabetes. The patient does report that she takes Januvia and glipizide at home, but continues to have blood sugars in the 300. The patient also reports that she does not have a glucometer at home and has not checked her blood sugar since her move here in December. So, Hospital Medicine was asked to see her in consultation to help co-manage her diabetes. Please see dictated H and P from Dr. Latham for complete details of her history of present illness. PAST MEDICAL HISTORY: Significant for depression, PTSD, bipolar, type 2 diabetes, and hypertension. PAST SURGICAL HISTORY: None. HOME MEDICATIONS: Include: 1. Hydroxyzine 50 mg p.o. q.4 hours p.r.n. 2. Glipizide 5 mg p.o. daily. 3. Lisinopril 10 mg p.o. daily. 4. Furosemide 80 mg p.o. daily. 5. Depakote 500 mg p.o. b.i.d. 6. Trazodone 50 mg at bedtime p.r.n. 7. Carvedilol 12.5 mg p.o. b.i.d. 8. Abilify 400 mg IM. 9. Spironolactone 25 mg p.o. daily. 10. Januvia 100 mg p.o. daily. 11. Pravastatin 40 mg p.o. daily. ALLERGIES: No known allergies. FAMILY HISTORY: No reported history of diabetes, heart disease, strokes, or cancers within the family. SOCIAL HISTORY: The patient denies any tobacco, alcohol, or illicit drug use. She is engaged. She lives with her partner. Surrogate decision maker in the event she is unable to make her own decisions is her partner, Bahman. She is a full code. REVIEW OF SYSTEMS: She denies any recent fever, chills, unintended weight loss , chest pain, or edema. Denies any cough, hemoptysis, shortness of breath. No nausea, vomiting, or abdominal pain. Denies any gross hematuria, dysuria, focal weakness, or sensory loss. Denies any visual complaints, dysphagia, arthralgias, myalgias, rashes, lesions, open sores, psychosis, or anxiety. PHYSICAL EXAM: General: At this time, Ms. Meng is alert and oriented, sitting in the conference room during this eval, in no acute distress. Vital Signs: Blood pressure 117/67, heart rate 72, respirations 18, O2 saturation 99% , temperature was 97.6. HEENT: Head is atraumatic, normocephalic. Eyes: EOMs are intact. Sclerae anicteric and not pale. Oral mucosa is moist. Neck is supple. Lungs are clear to auscultation bilaterally. No wheezes, rales, or rhonchi. Cardiac: S1, S2. Regular rate and rhythm. No murmurs, rubs, or gallops. Abdomen is soft and nontender. Bowel sounds are present x4. Extremities: She is able to move all 4 extremities. There is no clubbing or cyanosis. Neurologic: She is awake, alert, oriented x3. Speech is clear. Thought process is intact. Skin is intact. DIAGNOSTIC STUDIES/LAB DATA: WBCs are 8.1, RBCs 4.40, hemoglobin 12.3, hematocrit is 36, platelet count 169. Venous ABG; pH was 7.37, pCO2 was 47, pO2 was 68, venous O2 saturation 94.8%. Sodium 131, potassium 4.3, chloride 94 , carbon dioxide was 28, anion gap was 9, BUN was 12, creatinine 0.82, glucose ranged from 374 to 432, calcium was 9.5. ASTs were 11, ALTs were 9, alkaline phosphatase was 74. TSH was 1.80. Initial lactic acid was 3.4, repeat was 1. IMPRESSION AND PLAN: Ms. Meng is a 39-year-old female with a past medical history significant for bipolar, posttraumatic stress disorder, depression, type 2 diabetes and hypertension, who presented to the emergency room with suicidal ideation. Hospital Medicine was asked to see the patient in evaluation to help co- manage her diabetes during this hospitalization. Our recommendations are as follows: 1. Suicidal ideation. Management per Psychiatry. 2. Hyperglycemia. The patient does have a history of type 2 diabetes. I suspect her hyperglycemia is related to not taking her medications for several days. Her Januvia and glipizide were resumed. I will place her on lispro sliding scale with fingersticks a.c. and h.s. I will also recommend hemoglobin A1c, which has been ordered for the morning. We will follow along and adjust her insulin as needed. She will likely require further adjustments to her medications. Will consider adding Lantus if blood sugars do not improve. Would recommend follow up with [facility] for healthy living and endocrinology. 3. Depression, bipolar. Management per Psychiatry. 4. FEN: She should have a consistent carb diet. 5. Code status: She is a full code. 6. DVT prophylaxis: As per Psychiatry. TIME SPENT: Time spent on this consultation was 45 minutes, greater than half that time was spent reviewing events leading thus far to her hospitalization, performing physical exam, and reviewing my plan of care. I have discussed this with my attending, Dr. Eleazar Reza; he is in agreement with my plan. INÉS CAICEDO, MELINA [id number]/[facility] #: [id number] BA
[2019-06-21 08:00] LABS: HDL Cholesterol 31.1 mg/dL
[2019-06-21] MEDS: Insulin LISPRO* 1 UNITS UNIT SUBCUT SCH ×4 (09:13→21:14)
[2019-06-21] MEDS: Atorvastatin* 10 MG TAB PO SCH (09:14)
[2019-06-21] MEDS: Spironolactone TAB* 25 MG PO SCH (09:14)
[2019-06-21] MEDS: CMCS: SitaGLIPtin (NF) 100 MG TAB PO SCH (09:14)
[2019-06-21] MEDS: Lisinopril TAB* 10 MG PO SCH (09:15)
[2019-06-21] MEDS: glipiZIDE TAB* 5 MG PO SCH (09:15)
[2019-06-21] MEDS: Carvedilol TAB* 6.25 MG PO SCH ×2 (09:15→21:15)
[2019-06-21] MEDS: Divalproex DR TAB(*) 500 MG PO SCH ×2 (09:16→21:16)
--- NOTE | 2019-06-22 08:35 | PN ---
Subjective - Subjective Date of Service: 06/21/19 Service Type: 41345 Hosp care 25 min moderate complexity Subjective: Late entry for 06/21/19: Patient continues to present as dysphoric. She reports difficulty with sleep and conflict amongst peers and staff. She states that she purposefully avoided milieu and stayed in her room. She states that she received a call from friends in [place] and that she appreciated the connection but also reminded her of how much she misses them. She states her fiance has been very supportive by visiting often, that he has reached out to seek his own therapist , and signed up for a [employer] family class. Objective - General Observations Appearance: Malodorous Stature: Overweight Posture: WNL Eye Contact: Avoidant Behavior/Activity: WNL - Interaction Observations Attitude Towards Examiner: Cooperative Stated Mood: Dysphoric Affect: Flat Speech Pattern/Tone: Quiet Volume Thought Process: Impoverished Perception: WNL Thought Content: Depressive Thought Process: Lethality: Passive Wish Hallucination Type: Denies Delusion Type: Denies - Cognitive Function Orientation: A&O x 4 Level of Consciousness: Alert Cognition: Impaired Attention/Concentration Estimated Intelligence: Normal Insight: WNL Judgment Within Normal Limits: No Ability to Make Reasonable Decisions: Moderately Impaired - Medication Compliance Cooperative with Inpatient Medication Regimen: Yes - Group Participation Participates in Group Activities: Partial Assessment - Assessment Merits Inpatient Hospitalization: For Immediate Safety, For Stabilization Inpatient DSM-V Dx: F31.4 Clinical Impression: 39yo black female with history of bipolar I d/o, who presented to the ED with her fiance due to depressed mood and suicidal thoughts. She was hospitalized earlier this month during a manic episode at [facility] when our unit was full. She has a history of psychiatric hospitalizations in [place] and [place]. She and her fiance relocated to this area last December as he is a post-doc candidate at [employer]. Patient merits hospitalization for immediate safety and stabilization. Plan - Plan Treatment Plan: Name: SILVER ROONEY Birthdate: 1980 [id number] continue acute intensive psychiatric treatment. may decrease to q30min and allow staff pass. continue current medications. appreciate hospitalist involvement for diabetes management. obtain valproic acid level on am of 06/23/19. Continued Medication Management: Continue Outpt Medication Medications: Current Medications Acetaminophen (Tylenol Tab*) 650 mg PO Q4H PRN PRN Reason: for pain; or Temp >101 F Al Hydrox/Mg Hydrox/Simethicone (Maalox Plus*) 30 ml PO Q4H PRN PRN Reason: INDIGESTION Atorvastatin Calcium (Lipitor*) 10 mg PO DAILY [facility]; Protocol Last Admin: 06/21/19 09:14 Dose: 10 mg Carvedilol (Coreg Tab*) 12.5 mg PO BID [facility] Last Admin: 06/21/19 21:15 Dose: 12.5 mg Dextrose (D50w Syringe 50 Ml*) 12.5 gm IV PUSH .FOR FS < 60 - SS PRN PRN Reason: FS < 60 Divalproex Sodium (Depakote Dr Tab(*)) 500 mg PO BID [facility] Last Admin: 06/21/19 21:16 Dose: 500 mg Glipizide (Glucotrol Tab*) 5 mg PO DAILY [facility] Last Admin: 06/21/19 09:15 Dose: 5 mg Hydroxyzine HCl (Atarax Tab*) 50 mg PO Q4HR PRN PRN Reason: ANXIETY Insulin Human Lispro (Humalog*) 0 units SUBCUT [facility]; Protocol Last Admin: 06/21/19 21:14 Dose: 12 units Lisinopril (Prinivil Tab*) 10 mg PO DAILY [facility] Last Admin: 06/21/19 09:15 Dose: 10 mg Sitagliptin Phosphate (Januvia (Nf)) 100 mg PO DAILY [facility]; Protocol Last Admin: 06/21/19 09:14 Dose: 100 mg Spironolactone (Aldactone Tab*) 25 mg PO DAILY [facility] Last Admin: 06/21/19 09:14 Dose: 25 mg Trazodone HCl (Desyrel Tab*) 50 mg PO BEDTIME PRN PRN Reason: INSOMNIA - Discharge Plan Discharge Plan: Inpatient Hospitalization
[2019-06-22] MEDS: Carvedilol TAB* 6.25 MG PO SCH ×2 (08:37→21:40)
[2019-06-22] MEDS: Divalproex DR TAB(*) 500 MG PO SCH ×2 (08:37→21:40)
[2019-06-22] MEDS: CMCS: SitaGLIPtin (NF) 100 MG TAB PO SCH (08:37)
[2019-06-22] MEDS: Spironolactone TAB* 25 MG PO SCH (08:37)
[2019-06-22] MEDS: Atorvastatin* 10 MG TAB PO SCH (08:37)
[2019-06-22] MEDS: glipiZIDE TAB* 5 MG PO SCH (08:37)
[2019-06-22] MEDS: Lisinopril TAB* 10 MG PO SCH (08:37)
[2019-06-22] MEDS: Insulin LISPRO* 1 UNITS UNIT SUBCUT SCH ×4 (08:40→21:42)
--- NOTE | 2019-06-22 17:23 | PN ---
Subjective - Subjective Date of Service: 06/22/19 Service Type: 05704 Hosp care 25 min moderate complexity Subjective: patient continues to present as dysphoric. she endorses helplessness, decreased concentration and lethargy. she states she is concerned about diabetes management and generally "staying on top of things" when she returns home. Objective - General Observations Appearance: Malodorous Stature: Overweight Posture: WNL, Slumped Eye Contact: Intermittent Behavior/Activity: Slowed - Interaction Observations Attitude Towards Examiner: Cooperative Stated Mood: Dysphoric Affect: Flat - tearful at times Speech Pattern/Tone: Quiet Volume Thought Process: Impoverished Perception: WNL Thought Content: Depressive, Self-Deprecatory Thought Process: Lethality: Passive Wish Hallucination Type: Denies Delusion Type: Denies - Cognitive Function Orientation: A&O x 4 Level of Consciousness: Alert Cognition: Impaired Attention/Concentration Estimated Intelligence: Normal Insight: WNL Judgment Within Normal Limits: No Ability to Make Reasonable Decisions: Moderately Impaired - Medication Compliance Cooperative with Inpatient Medication Regimen: Yes - Group Participation Participates in Group Activities: Yes Assessment - Assessment Merits Inpatient Hospitalization: For Immediate Safety, For Stabilization Inpatient DSM-V Dx: F31.4 Clinical Impression: 39yo black female with history of bipolar I d/o, who presented to the ED with her fiance due to depressed mood and suicidal thoughts. She was hospitalized earlier this month during a manic episode at [facility] when our unit was full. She has a history of psychiatric hospitalizations in [place] and [place]. She and her fiance relocated to this area last December as he is a post-doc candidate at [employer]. Patient merits hospitalization for immediate safety and stabilization. Plan - Plan Treatment Plan: Name: SILVER ROONEY Birthdate: 1980 [id number] continue acute intensive psychiatric treatment. may decrease to q30min and allow staff pass. add lamotrigine 25mg qhs. appreciate hospitalist involvement for diabetes management. obtain valproic acid level on am of 06/23/19. Continued Medication Management: Start Medication Medications: Current Medications Acetaminophen (Tylenol Tab*) 650 mg PO Q4H PRN PRN Reason: for pain; or Temp >101 F Al Hydrox/Mg Hydrox/Simethicone (Maalox Plus*) 30 ml PO Q4H PRN PRN Reason: INDIGESTION Atorvastatin Calcium (Lipitor*) 10 mg PO DAILY [facility]; Protocol Last Admin: 06/22/19 08:37 Dose: 10 mg Carvedilol (Coreg Tab*) 12.5 mg PO BID [facility] Last Admin: 06/22/19 08:37 Dose: 12.5 mg Dextrose (D50w Syringe 50 Ml*) 12.5 gm IV PUSH .FOR FS < 60 - SS PRN PRN Reason: FS < 60 Divalproex Sodium (Depakote Dr Tab(*)) 500 mg PO BID [facility] Last Admin: 06/22/19 08:37 Dose: 500 mg Glipizide (Glucotrol Tab*) 5 mg PO DAILY [facility] Last Admin: 06/22/19 08:37 Dose: 5 mg Hydroxyzine HCl (Atarax Tab*) 50 mg PO Q4HR PRN PRN Reason: ANXIETY Insulin Human Lispro (Humalog*) 0 units SUBCUT ACHS [facility]; Protocol Last Admin: 06/22/19 17:10 Dose: 15 units Lamotrigine (Lamictal Tab(*)) 25 mg PO BEDTIME [facility] Lisinopril (Prinivil Tab*) 10 mg PO DAILY [facility] Last Admin: 06/22/19 08:37 Dose: 10 mg Sitagliptin Phosphate (Januvia (Nf)) 100 mg PO DAILY [facility]; Protocol Last Admin: 06/22/19 08:37 Dose: 100 mg Spironolactone (Aldactone Tab*) 25 mg PO DAILY [facility] Last Admin: 06/22/19 08:37 Dose: 25 mg Trazodone HCl (Desyrel Tab*) 50 mg PO BEDTIME PRN PRN Reason: INSOMNIA - Discharge Plan Discharge Plan: Inpatient Hospitalization
[2019-06-22] MEDS: lamoTRIgine TAB(*) 25 MG PO SCH (21:40)
[2019-06-23] MEDS: Insulin LISPRO* 1 UNITS UNIT SUBCUT SCH ×4 (08:40→21:30)
[2019-06-23] MEDS: Carvedilol TAB* 6.25 MG PO SCH ×2 (08:43→21:17)
[2019-06-23] MEDS: Lisinopril TAB* 10 MG PO SCH (08:43)
[2019-06-23] MEDS: glipiZIDE TAB* 5 MG PO SCH (08:45)
[2019-06-23] MEDS: CMCS: SitaGLIPtin (NF) 100 MG TAB PO SCH (08:46)
[2019-06-23] MEDS: Atorvastatin* 10 MG TAB PO SCH (08:46)
[2019-06-23] MEDS: Spironolactone TAB* 25 MG PO SCH (08:47)
[2019-06-23] MEDS: Divalproex DR TAB(*) 500 MG PO SCH ×2 (13:50→21:16)
[2019-06-23] MEDS: lamoTRIgine TAB(*) 25 MG PO SCH (21:17)
[2019-06-24] MEDS: Insulin LISPRO* 1 UNITS UNIT SUBCUT SCH ×4 (08:02→21:07)
[2019-06-24] MEDS: CMCS: SitaGLIPtin (NF) 100 MG TAB PO SCH (08:30)
[2019-06-24] MEDS: Atorvastatin* 10 MG TAB PO SCH (08:30)
[2019-06-24] MEDS: Carvedilol TAB* 6.25 MG PO SCH ×2 (08:30→20:57)
[2019-06-24] MEDS: glipiZIDE TAB* 5 MG PO SCH (08:30)
[2019-06-24] MEDS: Divalproex DR TAB(*) 500 MG PO SCH ×2 (08:30→20:57)
[2019-06-24] MEDS: Spironolactone TAB* 25 MG PO SCH (08:31)
[2019-06-24] MEDS: Lisinopril TAB* 10 MG PO SCH (08:31)
--- NOTE | 2019-06-24 17:07 | PN ---
Subjective - Subjective Date of Service: 06/24/19 Service Type: 38461 Hosp care 25 min moderate complexity Subjective: Silver continues to be depressed with sadness, anhedonia, poor personal care, feelings of helplessness. Says she has been more positive and hopeful lately with current treatments. Denies SI today. Objective - General Observations Appearance: Well Groomed Appears Stated Age: Yes Stature: Overweight Posture: WNL Eye Contact: Intermittent Behavior/Activity: Slowed - Interaction Observations Attitude Towards Examiner: Cooperative Stated Mood: Dysphoric Affect: Blunted Speech Pattern/Tone: Clear, Appropriate, Quiet Volume Thought Process: Coherent, Goal Directed Perception: WNL Thought Content: WNL Hallucination Type: Denies Delusion Type: Denies - Cognitive Function Level of Consciousness: Awake, Alert, Appropriate Cognition: WNL Estimated Intelligence: Normal Insight: WNL Judgment Within Normal Limits: Yes Ability to Make Reasonable Decisions: Mildly Impaired - Medication Compliance Cooperative with Inpatient Medication Regimen: Yes - Group Participation Participates in Group Activities: Yes Assessment - Assessment Merits Inpatient Hospitalization: For Immediate Safety, For Stabilization, Pending Safe DC Plan Inpatient DSM-V Dx: F31.4 Clinical Impression: 39yo black female with history of bipolar I d/o, who presented to the ED with her fiance due to depressed mood and suicidal thoughts. She was hospitalized earlier this month during a manic episode at [facility] when our unit was full. She has a history of psychiatric hospitalizations in [place] and [place]. She and her fiance relocated to this area last December as he is a post-doc candidate at [employer]. Patient merits hospitalization for immediate safety and stabilization. Plan - Plan Treatment Plan: Name: SILVER ROONEY Birthdate: 1980 [id number] continue acute intensive psychiatric treatment. may decrease to q30min and allow staff pass. add lamotrigine 25mg qhs. appreciate hospitalist involvement for diabetes management. obtain valproic acid level on am of 06/23/19. Continued Medication Management: Continue Outpt Medication Medications: Current Medications Acetaminophen (Tylenol Tab*) 650 mg PO Q4H PRN PRN Reason: for pain; or Temp >101 F Al Hydrox/Mg Hydrox/Simethicone (Maalox Plus*) 30 ml PO Q4H PRN PRN Reason: INDIGESTION Atorvastatin Calcium (Lipitor*) 10 mg PO DAILY [facility]; Protocol Last Admin: 06/24/19 08:30 Dose: 10 mg Carvedilol (Coreg Tab*) 12.5 mg PO BID [facility] Last Admin: 06/24/19 08:30 Dose: 12.5 mg Dextrose (D50w Syringe 50 Ml*) 12.5 gm IV PUSH .FOR FS < 60 - SS PRN PRN Reason: FS < 60 Divalproex Sodium (Depakote Dr Tab(*)) 500 mg PO BID [facility] Last Admin: 06/24/19 08:30 Dose: 500 mg Glipizide (Glucotrol Tab*) 5 mg PO DAILY [facility] Last Admin: 06/24/19 08:30 Dose: 5 mg Hydroxyzine HCl (Atarax Tab*) 50 mg PO Q4HR PRN PRN Reason: ANXIETY Insulin Human Lispro (Humalog*) 0 units SUBCUT ACHS [facility]; Protocol Last Admin: 06/24/19 12:07 Dose: 9 units Lamotrigine (Lamictal Tab(*)) 25 mg PO BEDTIME [facility] Last Admin: 06/23/19 21:17 Dose: 25 mg Lisinopril (Prinivil Tab*) 10 mg PO DAILY [facility] Last Admin: 06/24/19 08:31 Dose: 10 mg Sitagliptin Phosphate (Januvia (Nf)) 100 mg PO DAILY [facility]; Protocol Last Admin: 06/24/19 08:30 Dose: 100 mg Spironolactone (Aldactone Tab*) 25 mg PO DAILY [facility] Last Admin: 06/24/19 08:31 Dose: 25 mg Trazodone HCl (Desyrel Tab*) 50 mg PO BEDTIME PRN PRN Reason: INSOMNIA - Discharge Plan Discharge Plan: Outpatient Follow Up Outpatient Program: [facility]
[2019-06-24] MEDS: lamoTRIgine TAB(*) 25 MG PO SCH (20:57)
[2019-06-25] MEDS: Insulin LISPRO* 1 UNITS UNIT SUBCUT SCH ×3 (08:15→16:58)
[2019-06-25] MEDS: CMCS: SitaGLIPtin (NF) 100 MG TAB PO SCH (09:02)
[2019-06-25] MEDS: Carvedilol TAB* 6.25 MG PO SCH ×2 (09:02→18:00)
[2019-06-25] MEDS: Atorvastatin* 10 MG TAB PO SCH (09:02)
[2019-06-25] MEDS: Lisinopril TAB* 10 MG PO SCH (09:03)
[2019-06-25] MEDS: Spironolactone TAB* 25 MG PO SCH (09:03)
[2019-06-25] MEDS: glipiZIDE TAB* 5 MG PO SCH (09:03)
[2019-06-25] MEDS: Divalproex DR TAB(*) 500 MG PO SCH ×2 (09:03→18:00)
[2019-06-25] MEDS ORDERED: Insulin GLARGINE(*) 1 UNITS UNIT SUBCUT SCH (14:00)
--- NOTE | 2019-06-25 16:36 | DCNOTE ---
Subjective - Subjective Service Types: 70352 Hosp DC Day Mgmt complex over 30 min Discharge Date: 06/25/19 Subjective: Patient reports improved mood and denies SI or passive wish. She presents with improved affect and improved spontaneity in speech. She states she has reached out to peers on the unit and engaged in conversation. She notes she has been "smiling more." She advocates strongly to be discharged, citing acuity of unit to be distressing. Information Security spoke with hospitalist service about diabetes management and patient's desire to be discharged. Information Security encouraged to reach out to Dr Kingston, medieval english literature professor. Office phoned and notified that there is no endocrine coupon redemption clerk today and he is not in [place] on Mondays. Returned call to hospitalist to coordinate discharge medications and supplies for DM. Information Security also spoke with Nicole Merchant RN through [facility] who agrees to follow up with patient at home tomorrow. Objective - General Observations Appearance: Well Groomed Stature: Overweight Posture: WNL Eye Contact: Average Behavior/Activity: WNL - Interaction Observations Attitude Towards Examiner: Cooperative Stated Mood: Euthymic Affect: Bright Speech Pattern/Tone: Clear, Appropriate, Normal Volume Thought Process: Coherent, Goal Directed Perception: WNL Thought Content: WNL Hallucination Type: Denies Delusion Type: Denies - Cognitive Function Orientation: A&O x 4 Level of Consciousness: Alert Cognition: WNL Estimated Intelligence: Normal Insight: WNL Judgment Within Normal Limits: Yes - Medication Compliance Cooperative with Inpatient Medication Regimen: Yes - Group Participation Participates in Group Activities: Yes DC Assessment - Assessment Clinical Impression: 39yo black female with history of bipolar I d/o, who presented to the ED with her fiance due to depressed mood and suicidal thoughts. She was hospitalized earlier this month during a manic episode at [facility] when our unit was full. She has a history of psychiatric hospitalizations in [place] and [place]. She and her fiance relocated to this area last December as he is a post-doc candidate at [place]. Patient reports improvement in mood and denies SI or passive wish. She reports readiness for discharge and agrees to follow up with referrals for mental health and diabetes management. Merits Inpatient Hospitalization: No Clear for Discharge: Adequate Clinical Respons, Acceptable Safety Profile Inpatient DSM-V Dx: F31.4 Discharge Planning - Discharge Planning Discharge Plan: Outpatient Follow Up Outpatient Program: [facility] Recommendations for Continuing Care: Medication Management, Psychotherapy, Routine Metabolic Monitoring, Primary Care Followup, Specialty Followup Medications: Current Medications Atorvastatin Calcium (Lipitor*) 10 mg PO DAILY [facility]; Protocol Last Admin: 06/25/19 09:02 Dose: 10 mg Carvedilol (Coreg Tab*) 12.5 mg PO BID [facility] Last Admin: 06/25/19 09:02 Dose: 12.5 mg Divalproex Sodium (Depakote Dr Tab(*)) 500 mg PO BID [facility] Last Admin: 06/25/19 09:03 Dose: 500 mg Glipizide (Glucotrol Tab*) 5 mg PO DAILY [facility] Last Admin: 06/25/19 09:03 Dose: 5 mg Insulin Glargine (Lantus(*)) 15 units SUBCUT Q24H [facility] Last Admin: 06/25/19 13:58 Dose: 15 units Insulin Human Lispro (Humalog*) 0 units SUBCUT ACHS [facility]; Protocol Last Admin: 06/25/19 12:00 Dose: 12 units Lamotrigine (Lamictal Tab(*)) 25 mg PO BEDTIME [facility] Last Admin: 06/24/19 20:57 Dose: 25 mg Lisinopril (Prinivil Tab*) 10 mg PO DAILY [facility] Last Admin: 06/25/19 09:03 Dose: 10 mg Sitagliptin Phosphate (Januvia (Nf)) 100 mg PO DAILY [facility]; Protocol Last Admin: 06/25/19 09:02 Dose: 100 mg Spironolactone (Aldactone Tab*) 25 mg PO DAILY [facility] Last Admin: 06/25/19 09:03 Dose: 25 mg Trazodone HCl (Desyrel Tab*) 50 mg PO BEDTIME PRN PRN Reason: INSOMNIA Abilify Maintena 400mg IM q4 weeks due 06/28/19 Insulin Lispro and Lantus per Internal Medicine Discharge Planning: Prescriptions provided for discharge [x] Yes [] No Follow up care details as per social work arrangements: [facility]- [facility] Patient response to discharge plan: [x] eager for discharge [x] agreeable with discharge plan [] ambivalent about discharge [] disagrees with discharge today
--- NOTE | 2019-06-25 17:06 | PN ---
Subjective Date of Service: 06/25/19 Interval History: Called by Psych for evaluation as blood sugars remain elevated patient was seen and evaluated in the [facility]. Patient denies lightheaded or dizziness. Denies chest pain or shortness of breath. Denies fever or chills. Reports that she is feeling better Blood sugars reviewed Family History: Unchanged from Admission Social History: Unchanged from Admission Past Medical History: Unchanged from Admission Objective Active Medications: Acetaminophen (Tylenol Tab*) 650 mg PO Q4H PRN PRN Reason: for pain; or Temp >101 F Al Hydrox/Mg Hydrox/Simethicone (Maalox Plus*) 30 ml PO Q4H PRN PRN Reason: INDIGESTION Atorvastatin Calcium (Lipitor*) 10 mg PO DAILY [facility]; Protocol Last Admin: 06/25/19 09:02 Dose: 10 mg Carvedilol (Coreg Tab*) 12.5 mg PO BID [facility] Last Admin: 06/25/19 09:02 Dose: 12.5 mg Dextrose (D50w Syringe 50 Ml*) 12.5 gm IV PUSH .FOR FS < 60 - SS PRN PRN Reason: FS < 60 Divalproex Sodium (Depakote Dr Tab(*)) 500 mg PO BID [facility] Last Admin: 06/25/19 09:03 Dose: 500 mg Glipizide (Glucotrol Tab*) 5 mg PO DAILY [facility] Last Admin: 06/25/19 09:03 Dose: 5 mg Hydroxyzine HCl (Atarax Tab*) 50 mg PO Q4HR PRN PRN Reason: ANXIETY Insulin Glargine (Lantus(*)) 15 units SUBCUT Q24H [facility] Last Admin: 06/25/19 13:58 Dose: 15 units Insulin Human Lispro (Humalog*) 0 units SUBCUT ACHS [facility]; Protocol Last Admin: 06/25/19 12:00 Dose: 12 units Lamotrigine (Lamictal Tab(*)) 25 mg PO BEDTIME [facility] Last Admin: 06/24/19 20:57 Dose: 25 mg Lisinopril (Prinivil Tab*) 10 mg PO DAILY [facility] Last Admin: 06/25/19 09:03 Dose: 10 mg Sitagliptin Phosphate (Januvia (Nf)) 100 mg PO DAILY [facility]; Protocol Last Admin: 06/25/19 09:02 Dose: 100 mg Spironolactone (Aldactone Tab*) 25 mg PO DAILY [facility] Last Admin: 06/25/19 09:03 Dose: 25 mg Trazodone HCl (Desyrel Tab*) 50 mg PO BEDTIME PRN PRN Reason: INSOMNIA Vital Signs - 8 hr 06/25/19 11:34 Respiratory 15 Rate Oxygen Devices in Use Now: None Appearance: alert, calm, no acute distress Eyes: No Scleral Icterus Ears/Nose/Mouth/Throat: Clear Oropharnyx, Mucous Membranes Moist Neck: NL Appearance and Movements; NL JVP, Trachea Midline Respiratory: Symmetrical Chest Expansion and Respiratory Effort, Clear to Auscultation Cardiovascular: NL Sounds; No Murmurs; No JVD, No Edema Abdominal: NL Sounds; No Tenderness; No Distention Extremities: No Edema, No Clubbing, Cyanosis Skin: No Rash or Ulcers Neurological: Alert and Oriented x 3 Nutrition: Taking PO's Result Diagrams: 06/19/19 18:56 06/19/19 18:56 Microbiology and Other Data: Microbiology 06/19/19 20:00 Urine Culture - Final Urine Assess/Plan/Problems-Billing Assessment: Ms. Meng is a 39 y.o female with pmhx of htn and bipolar and DM who presented to the ER with suicidal ideation and was admitted to [facility] for inpatient management . found to have uncontrolled hypertension. - Patient Problems (1) Bipolar 1 disorder, depressed Current Visit: Yes Status: Acute Comment: management per psych (2) Diabetes mellitus Current Visit: Yes Status: Acute Code(s): E11.9 - TYPE 2 DIABETES MELLITUS WITHOUT COMPLICATIONS SNOMED Code(s): 50303853 Comment: Ha1c- 13.1 Continue lispro SS while in the hospital - lantus 15 units daily - continue glipizide and januvia - will add metformin ER 500mg daily - will need glucose testing supplies at discharge - will need to follow up with [facility] [facility] after discharge and follow up with endocrine (3) Hypertension Current Visit: Yes Status: Acute Code(s): I10 - ESSENTIAL (PRIMARY) HYPERTENSION SNOMED Code(s): 79971027 Comment: stable continue home medications Status and Disposition: disposition per psych
[2019-06-25 17:59] VITALS: BP 127/80
[2019-06-25] MEDS: lamoTRIgine TAB(*) 25 MG PO SCH (18:00)
== END 2019-06-25 18:10 | disposition home or self-care (01) | DRG 885 ==
LOC: ED 17:27 → BSU 06-20 10:43
PROVIDERS: ADMIT Psychiatry & Neurology Psychiatry; ATTEND Psychiatry & Neurology Psychiatry
DX: F31.4 Bipolar disorder, current episode depressed, severe, without psychotic features (principal); R45.851 Suicidal ideations; Z68.41 Body mass index [BMI] 40.0-44.9, adult; E11.65 Type 2 diabetes mellitus with hyperglycemia; F43.10 Post-traumatic stress disorder, unspecified; F60.3 Borderline personality disorder; F41.9 Anxiety disorder, unspecified; I10 Essential (primary) hypertension; E66.9 Obesity, unspecified; Z79.899 Other long term (current) drug therapy; Z79.4 Long term (current) use of insulin
CPT/HCPCS: 36415; 80053; 80061; 80164; 80307; 80320; 80329; 81003; 81015; 82803; 82947; 83036; 83605; 84443; 85025; 87086; 99222; 99232; 99238; 99284; A9270-GY; G0480

== ENCOUNTER 2020-03-12 12:12 | Inpatient (IN) ==
[2020-03-12 13:19] LABS: ABS Basophils 0.1 10^3/ul (0-0.2); ABS Eosinophils 0.3 10^3/ul (0-0.6); ABS Monocytes 0.5 10^3/ul (0-0.8); ABS Neutrophils 5.9 10^3/ul (1.5-7.7); Eosinophil % 2.6 %; Hematocrit 37 % (35-47); Hemoglobin 12.3 g/dL (12.0-16.0); Lymphocyte % 31.1 %; Mean Corpuscular HGB Conc 34 g/dL (31-36); Mean Corpuscular Hemoglobin 28 pg (27-31); Mean Corpuscular Volume 84 fL (80-97); Mean Platelet Volume 9.4 fL (7.4-10.4); Platelet Count 237 10^3/uL (150-450); Red Blood Count 4.37 10^6 /uL (3.70-4.87); Red Cell Distribution Width 13 % (10-15); White Blood Count 9.8 10^3/uL (3.5-10.8)
[2020-03-12 13:26] LABS: Urine Appearance Turbid; Urine Bilirubin Negative (Negative); Urine Blood 1+ (Negative); Urine Color Yellow; Urine Glucose 3+(>=500 mg/dL) (Negative); Urine Ketones Trace (Negative); Urine Nitrite Negative (Negative); Urine Protein Negative (Negative); Urine Specific Gravity 1.031 (1.010-1.030); Urine Urobilinogen Negative (Negative)
[2020-03-12 13:35] LABS: Alcohol, S < 10 mg/dL (<10); Salicylate < 2.50 mg/dL (<30)
[2020-03-12 13:36] LABS: Urine Benzodiazepine Screen None Detected (None Detect); Urine Cannabinoids Screen None Detected (None Detect); Urine Opiates Screen None Detected (None Detect)
[2020-03-12 13:37] LABS: ALT 9 U/L (7-52); AST 11 U/L (13-39); Acetaminophen < 15 mcg/mL; Albumin 3.8 g/dL (3.2-5.2); Albumin/Globulin Ratio 0.9 (1-3); Alkaline Phosphatase 90 U/L (34-104); Anion Gap 12 mmol/L (2-11); BUN/Creatinine Ratio 10.3 (8-20); Blood Urea Nitrogen 8 mg/dL (6-24); CO2 Carbon Dioxide 21 mmol/L (22-32); Calcium 9.8 mg/dL (8.6-10.3); Chloride 99 mmol/L (101-111); Globulin 4.3 g/dL (2-4); Glucose 479 mg/dL (70-100); Potassium 4.1 mmol/L (3.5-5.0); Sodium 132 mmol/L (135-145); Total Protein 8.1 g/dL (6.4-8.9)
[2020-03-12 13:42] LABS: HCG Pregnancy < 0.60 mIU/mL
[2020-03-12 13:48] LABS: Urine Squamous Epithelial Cell Present (Absent)
[2020-03-12 13:49] LABS: Urine Red Blood Cell Trace(0-2/hpf) (Absent); Urine White Blood Cell 1+(6-10/hpf) (Absent)
[2020-03-12] MEDS ORDERED: Al Hydrox/Mg Hydrox/Simet LIQ 30 ML UDC PO PRN (15:50)
[2020-03-13 07:57] LABS: HDL Cholesterol 31.2 mg/dL
[2020-03-13] MEDS ORDERED: LORazepam 2 mg VIAL 1 ml ONE (08:41)
[2020-03-13] MEDS ORDERED: Haloperidol 5 mg/ml SDV IV/IM 5 MG/ML AMP ONE ×2 (08:41→08:58)
[2020-03-13] MEDS ORDERED: Lorazepam PYXIS KEY ONE (08:42)
[2020-03-13] MEDS ORDERED: diPHENhydraMINE IV 50 MG/ML 1 ml VIAL (BENADRYL) ONE (08:58)
[2020-03-13] MEDS ORDERED: diPHENhydraMINE IV 50 MG/ML 1 ml VIAL (BENADRYL) IM ONE (09:09)
[2020-03-13] MEDS ORDERED: LORazepam 2 mg VIAL 1 ml IM ONE (09:09)
[2020-03-13] MEDS ORDERED: Haloperidol 5 mg/ml SDV IV/IM 5 MG/ML AMP IM ONE ×2 (09:09)
[2020-03-13] MEDS: Insulin GLARGINE 100 un/ml 10 ml VIAL SUBCUT SCH (14:45)
[2020-03-14] MEDS: CMCS:SitaGLIPtin 100 mg TAB (NF) PO SCH ×2 (11:43→11:47)
[2020-03-14] MEDS: Insulin GLARGINE 100 un/ml 10 ml VIAL SUBCUT SCH (11:43)
[2020-03-14] MEDS ORDERED: diPHENhydraMINE IV 50 MG/ML 1 ml VIAL (BENADRYL) IM ONE (16:37)
[2020-03-14] MEDS ORDERED: diPHENhydraMINE IV 50 MG/ML 1 ml VIAL (BENADRYL) ONE (16:37)
[2020-03-14] MEDS ORDERED: LORazepam 2 mg VIAL 1 ml ONE (16:38)
[2020-03-14] MEDS ORDERED: Lorazepam PYXIS KEY ONE (16:38)
[2020-03-14] MEDS ORDERED: LORazepam 2 mg VIAL 1 ml IM ONE (16:38)
[2020-03-14] MEDS ORDERED: Haloperidol 5 mg/ml SDV IV/IM 5 MG/ML AMP IM ONE ×2 (16:39→18:45)
[2020-03-14] MEDS ORDERED: Haloperidol 5 mg/ml SDV IV/IM 5 MG/ML AMP ONE ×2 (16:39→18:45)
[2020-03-15] MEDS: Insulin GLARGINE 100 un/ml 10 ml VIAL SUBCUT SCH (14:14)
[2020-03-15] MEDS: CMCS:SitaGLIPtin 100 mg TAB (NF) PO SCH (14:14)
[2020-03-16] MEDS: CMCS:SitaGLIPtin 100 mg TAB (NF) PO SCH (09:46)
[2020-03-16] MEDS: Insulin GLARGINE 100 un/ml 10 ml VIAL SUBCUT SCH (09:46)
[2020-03-17] MEDS: CMCS:SitaGLIPtin 100 mg TAB (NF) PO SCH (12:01)
[2020-03-17] MEDS: Insulin GLARGINE 100 un/ml 10 ml VIAL SUBCUT SCH (12:03)
[2020-03-18] MEDS: CMCS:SitaGLIPtin 100 mg TAB (NF) PO SCH (10:08)
[2020-03-18] MEDS: Insulin GLARGINE 100 un/ml 10 ml VIAL SUBCUT SCH (10:36)
[2020-03-18] MEDS ORDERED: Insulin GLARGINE 100 un/ml 10 ml VIAL SUBCUT ONE (10:48)
[2020-03-18] MEDS: Insulin ISOPH/REG 70/30 SUBCUT SCH (16:52)
[2020-03-19] MEDS ORDERED: Insulin GLARGINE 100 un/ml 10 ml VIAL SUBCUT SCH (09:00)
[2020-03-19] MEDS: Insulin ISOPH/REG 70/30 SUBCUT SCH ×2 (10:16→17:01)
[2020-03-19] MEDS ORDERED: HYDROcodone/ACETAMIN 5/325 mg TAB PO STA (13:37)
[2020-03-20 09:22] VITALS: BP 124/76
[2020-03-20] MEDS: Insulin ISOPH/REG 70/30 SUBCUT SCH (09:51)
[2020-03-21] MEDS ORDERED: Insulin ISOPH/REG 70/30 SUBCUT SCH (08:00)
== END 2020-03-20 15:15 | disposition home health service (06) | DRG 876 ==
LOC: ED 12:12 → BSU 15:50
PROVIDERS: ADMIT Psychiatry & Neurology Psychiatry; ATTEND Psychiatry & Neurology Psychiatry

== ENCOUNTER 2020-11-16 19:08 | Inpatient (IN) ==
[2020-11-16] MEDS ORDERED: LORazepam 2 mg VIAL 1 ml IM ONE (19:48)
[2020-11-16] MEDS ORDERED: Lorazepam PYXIS KEY PRN (19:48)
[2020-11-16] MEDS ORDERED: Droperidol 5 MG/2 ML 2 ML VIAL IM ONE (19:48)
[2020-11-16 21:32] LABS: ABS Basophils 0.1 10^3/ul (0-0.2); ABS Eosinophils 0.1 10^3/ul (0-0.6); ABS Lymphocytes 3.7 10^3/ul (1.0-4.8); ABS Monocytes 0.6 10^3/ul (0-0.8); ABS Neutrophils 3.9 10^3/ul (1.5-7.7); Eosinophil % 1.5 %; Hematocrit 35 % (35-47); Hemoglobin 11.6 g/dL (12.0-16.0); Lymphocyte % 43.9 %; Mean Corpuscular HGB Conc 33 g/dL (31-36); Mean Corpuscular Hemoglobin 27 pg (27-31); Mean Corpuscular Volume 83 fL (80-97); Mean Platelet Volume 9.5 fL (7.4-10.4); Nucleated Red Blood Cells % 0.1; Platelet Count 187 10^3/uL (150-450); Red Blood Count 4.22 10^6 /uL (3.70-4.87); Red Cell Distribution Width 15 % (10-15); White Blood Count 8.3 10^3/uL (3.5-10.8)
[2020-11-16 21:47] LABS: ALT 12 U/L (7-52); AST 16 U/L (13-39); Albumin 3.5 g/dL (3.2-5.2); Alkaline Phosphatase 76 U/L (35-149); Anion Gap 11 mmol/L (2-11); Blood Urea Nitrogen 14 mg/dL (6-24); CO2 Carbon Dioxide 22 mmol/L (22-32); Calcium 9.1 mg/dL (8.6-10.3); Chloride 100 mmol/L (101-111); EGFR African American 83.1 (>60); EGFR Non-African American 68.7 (>60); Globulin 3.6 g/dL (2-4); Glucose 323 mg/dL (70-100); Potassium 4.2 mmol/L (3.5-5.0); Sodium 133 mmol/L (135-145); Total Protein 7.1 g/dL (6.4-8.9)
[2020-11-16 21:52] LABS: HCG Pregnancy < 0.60 mIU/mL
[2020-11-16 22:12] LABS: Acetaminophen < 15 mcg/mL; Alcohol, S < 10 mg/dL (<10); Salicylate < 2.50 mg/dL (<30)
[2020-11-16 22:25] LABS: TSH Ultra Thyroid Stim Horm 1.91 mcIU/mL (0.34-5.60)
[2020-11-17] MEDS ORDERED: Al Hydrox/Mg Hydrox/Simet LIQ 30 ML UDC PO PRN (11:09)
[2020-11-17] MEDS: Insulin ISOPH/REG 70/30 SUBCUT SCH (18:44)
[2020-11-18 08:19] LABS: HDL Cholesterol 33.4 mg/dL
[2020-11-18] MEDS: Insulin ISOPH/REG 70/30 SUBCUT SCH ×2 (13:18→22:29)
[2020-11-18] MEDS ORDERED: Dextrose 50% Syringe 50 ml 25 GM/50 ML SYRINGE IV PUSH PRN (13:36)
[2020-11-19] MEDS: Insulin ISOPH/REG 70/30 SUBCUT SCH ×2 (09:17→18:07)
[2020-11-20] MEDS: Insulin ISOPH/REG 70/30 SUBCUT SCH ×2 (11:57→18:28)
[2020-11-21] MEDS: Insulin ISOPH/REG 70/30 SUBCUT SCH ×2 (09:28→18:09)
[2020-11-22] MEDS: Insulin ISOPH/REG 70/30 SUBCUT SCH ×2 (08:50→18:50)
[2020-11-23] MEDS: Insulin ISOPH/REG 70/30 SUBCUT SCH ×2 (09:17→18:00)
[2020-11-24] MEDS: Insulin ISOPH/REG 70/30 SUBCUT SCH ×2 (08:54→17:47)
[2020-11-25] MEDS: Insulin ISOPH/REG 70/30 SUBCUT SCH (09:11)
[2020-11-25 10:34] VITALS: BP 131/62
== END 2020-11-25 11:57 | disposition home or self-care (01) | DRG 885 ==
LOC: ED 19:08 → BSU 11-17 00:25
PROVIDERS: ADMIT Psychiatry & Neurology Psychiatry; ATTEND Psychiatry & Neurology Psychiatry

== ENCOUNTER 2021-06-12 12:20 | Emergency (ER) ==
[2021-06-12] MEDS ORDERED: Albuterol/Ipratropium NEB.SOL (2.5/0.5 MG) 3 ML NEB.SOLN INH ONE (13:01)
[2021-06-12 13:45] LABS: ABS Eosinophils 0.1 10^3/ul (0-0.6); ABS Monocytes 0.5 10^3/ul (0-0.8); ABS Neutrophils 4.8 10^3/ul (1.5-7.7); Eosinophil % 1.1 %; Hematocrit 36 % (35-47); Lymphocyte % 35.2 %; Mean Corpuscular HGB Conc 33 g/dL (31-36); Mean Corpuscular Hemoglobin 27 pg (27-31); Mean Corpuscular Volume 81 fL (80-97); Mean Platelet Volume 9.8 fL (7.4-10.4); Nucleated Red Blood Cells % 0.1; Platelet Count 187 10^3/uL (150-450); Red Blood Count 4.44 10^6 /uL (3.70-4.87); Red Cell Distribution Width 16 % (10-15); White Blood Count 8.5 10^3/uL (3.5-10.8)
[2021-06-12 14:02] LABS: ALT 11 U/L (7-52); AST 12 U/L (13-39); Albumin 3.8 g/dL (3.2-5.2); Alkaline Phosphatase 84 U/L (35-149); Anion Gap 6 mmol/L (2-11); Blood Urea Nitrogen 11 mg/dL (6-24); C Reactive Protein 5.24 mg/L (<8.01); CO2 Carbon Dioxide 27 mmol/L (22-32); Calcium 9.4 mg/dL (8.6-10.3); Chloride 101 mmol/L (101-111); Globulin 3.8 g/dL (2-4); Glucose 167 mg/dL (70-100); Potassium 4.1 mmol/L (3.5-5.0); Sodium 134 mmol/L (135-145); Total Protein 7.6 g/dL (6.4-8.9); eGFR CKD-EPI 114.1 (>60)
[2021-06-12 14:08] LABS: Activated Partial Thrombo Time 29.9 seconds (26.0-38.0); INR 1.03 (0.86-1.15); Troponin I 0.04 ng/mL (<0.03)
[2021-06-12] MEDS ORDERED: Iodixanol (CONTRAST) 320 MG/ML 100 ML SDV IV ONE (17:25)
[2021-06-12 17:47] LABS: Troponin I 0.04 ng/mL (<0.03)
[2021-06-12] MEDS ORDERED: Dexamethasone IV 4 MG/ML 5 ML VIAL (20 MG) IVPB ONE (18:26)
[2021-06-12] MEDS ORDERED: cefTRIAXone 1 gm/50 mL NS BAG 1 GM/50 ML BAG IV ONE (18:29)
[2021-06-12] MEDS ORDERED: Dexamethasone IV 10 MG in NS 0.9% 50 ML IVPB ONE (19:00)
[2021-06-12] MEDS ORDERED: Furosemide 20 mg/2 ml IV VIAL IV ONE (21:11)
[2021-06-12] MEDS ORDERED: Dextrose 50% Syringe 50 ml 25 GM/50 ML SYRINGE IV PUSH PRN (21:16)
[2021-06-12 21:47] LABS: Magnesium 1.6 mg/dL (1.9-2.7)
[2021-06-12 21:56] LABS: TSH Ultra Thyroid Stim Horm 1.59 mcIU/mL (0.34-5.60)
[2021-06-12] MEDS ORDERED: Albuterol HFA INHALER 8 gm MDI INH SCH (22:00)
[2021-06-12 22:19] VITALS: BP 188/107
[2021-06-13] MEDS ORDERED: Furosemide 20 mg/2 ml IV VIAL IV SCH (08:00)
[2021-06-13] MEDS ORDERED: NF: Dulaglutide (NF) 1.5 MG/0.5 ML SYRINGE SUBCUT SCH (09:00)
== END 2021-06-12 22:32 | disposition home or self-care (01) ==
LOC: ED 12:20 → EDHOLD 12:20 → SUATTDRO 21:08 → ED 22:32 → EDHOLD 22:32
PROVIDERS: ATTEND Internal Medicine

== ENCOUNTER 2021-11-15 22:39 | Inpatient (IN) ==
[2021-11-15 23:38] LABS: Urine Appearance Cloudy; Urine Bilirubin Negative (Negative); Urine Blood Negative (Negative); Urine Color Yellow; Urine Glucose 3+(>=500 mg/dL) (Negative); Urine Ketones Trace (Negative); Urine Nitrite Negative (Negative); Urine Protein 2+(100 mg/dL) (Negative); Urine Specific Gravity 1.029 (1.002-1.030); Urine Urobilinogen Negative (Negative)
[2021-11-15 23:39] LABS: Urine Bacteria Absent (Absent); Urine Red Blood Cell Trace(0-2/hpf) (Absent); Urine Squamous Epithelial Cell Present (Absent); Urine White Blood Cell Trace(0-5/hpf) (Absent)
[2021-11-15 23:51] LABS: Urine Benzodiazepine Screen None Detected (None Detect); Urine Cannabinoids Screen None Detected (None Detect); Urine Opiates Screen None Detected (None Detect)
[2021-11-15 23:55] LABS: ABS Basophils 0.1 10^3/ul (0-0.2); ABS Eosinophils 0.1 10^3/ul (0-0.6); ABS Monocytes 0.6 10^3/ul (0-0.8); ABS Neutrophils 3.3 10^3/ul (1.5-7.7); Eosinophil % 1.6 %; Hematocrit 35 % (35-47); Hemoglobin 11.2 g/dL (12.0-16.0); Lymphocyte % 42.5 %; Mean Corpuscular HGB Conc 32 g/dL (31-36); Mean Corpuscular Hemoglobin 26 pg (27-31); Mean Corpuscular Volume 83 fL (80-97); Mean Platelet Volume 9.5 fL (7.4-10.4); Nucleated Red Blood Cells % 0.1; Platelet Count 163 10^3/uL (150-450); Red Blood Count 4.23 10^6 /uL (3.70-4.87); Red Cell Distribution Width 16 % (10-15); White Blood Count 7.1 10^3/uL (3.5-10.8)
[2021-11-16 00:44] LABS: ALT 18 U/L (7-52); AST 27 U/L (13-39); Acetaminophen < 15 mcg/mL; Albumin 3.8 g/dL (3.2-5.2); Albumin/Globulin Ratio 1.2 (1-3); Alcohol, S < 13 mg/dL (<13); Alkaline Phosphatase 77 U/L (35-149); Anion Gap 8 mmol/L (2-11); Blood Urea Nitrogen 16 mg/dL (6-24); CO2 Carbon Dioxide 26 mmol/L (22-32); Calcium 8.9 mg/dL (8.6-10.3); Chloride 105 mmol/L (101-111); Globulin 3.2 g/dL (2-4); Glucose 192 mg/dL (70-100); Potassium 3.9 mmol/L (3.5-5.0); Salicylate < 2.50 mg/dL (<30); Sodium 139 mmol/L (135-145); eGFR CKD-EPI 87.1 (>60)
[2021-11-16 00:56] LABS: TSH Ultra Thyroid Stim Horm 3.03 mcIU/mL (0.34-5.60)
[2021-11-16] MEDS ORDERED: Al Hydrox/Mg Hydrox/Simet LIQ 30 ML UDC PO PRN (07:53)
[2021-11-16 08:40] VITALS: BP 152/86
[2021-11-16] MEDS: Insulin ISOPH/REG 70/30 SUBCUT SCH (10:11)
[2021-11-16] MEDS: Vitamin THERAPEUTIC TAB PO SCH (10:13)
[2021-11-16 11:26] LABS: HCG Pregnancy < 0.60 mIU/mL
[2021-11-16] MEDS ORDERED: Albuterol HFA INHALER 8 gm MDI INH PRN (15:49)
[2021-11-16] MEDS ORDERED: Insulin ISOPH/REG 70/30 SUBCUT SCH (21:00)
[2021-11-17] MEDS: Insulin ISOPH/REG 70/30 SUBCUT SCH (10:44)
[2021-11-17] MEDS: Vitamin THERAPEUTIC TAB PO SCH (10:44)
== END 2021-11-17 14:45 | disposition home or self-care (01) | DRG 883 ==
LOC: ED 22:39 → BSU 11-16 07:43
PROVIDERS: ADMIT Psychiatry & Neurology Psychiatry; ATTEND Psychiatry & Neurology Psychiatry

== ENCOUNTER 2021-11-17 20:52 | Inpatient (IN) ==
[2021-11-18] MEDS ORDERED: OLANZapine IM (NF) 10 MG VIAL IM ONE ×2 (05:32→06:29)
[2021-11-18] MEDS ORDERED: Sterile Water for Inj 10 ML ONE (05:45)
[2021-11-18] MEDS ORDERED: LORazepam 2 mg VIAL 1 ml IM ONE (06:29)
[2021-11-18] MEDS ORDERED: Lorazepam PYXIS KEY PRN (06:29)
[2021-11-18 08:13] LABS: ABS Basophils 0.1 10^3/ul (0-0.2); ABS Eosinophils 0.1 10^3/ul (0-0.6); ABS Lymphocytes 3.7 10^3/ul (1.0-4.8); ABS Monocytes 0.6 10^3/ul (0-0.8); ABS Neutrophils 3.6 10^3/ul (1.5-7.7); Eosinophil % 1.4 %; Hematocrit 37 % (35-47); Hemoglobin 12.2 g/dL (12.0-16.0); Lymphocyte % 45.5 %; Mean Corpuscular HGB Conc 33 g/dL (31-36); Mean Corpuscular Hemoglobin 27 pg (27-31); Mean Corpuscular Volume 83 fL (80-97); Mean Platelet Volume 9.2 fL (7.4-10.4); Nucleated Red Blood Cells % 0.1; Platelet Count 164 10^3/uL (150-450); Red Blood Count 4.45 10^6 /uL (3.70-4.87); Red Cell Distribution Width 16 % (10-15)
[2021-11-18 08:52] LABS: ALT 19 U/L (7-52); Acetaminophen < 15 mcg/mL; Albumin 3.8 g/dL (3.2-5.2); Albumin/Globulin Ratio 1.1 (1-3); Alcohol, S < 13 mg/dL (<13); Alkaline Phosphatase 90 U/L (35-149); Blood Urea Nitrogen 11 mg/dL (6-24); CO2 Carbon Dioxide 26 mmol/L (22-32); Calcium 9.4 mg/dL (8.6-10.3); Chloride 101 mmol/L (101-111); Globulin 3.5 g/dL (2-4); Glucose 207 mg/dL (70-100); Salicylate < 2.50 mg/dL (<30); Sodium 135 mmol/L (135-145); Total Protein 7.3 g/dL (6.4-8.9); eGFR CKD-EPI 96.6 (>60)
[2021-11-18 09:04] LABS: Anion Gap 8 mmol/L (2-11)
[2021-11-18 09:07] LABS: TSH Ultra Thyroid Stim Horm 2.55 mcIU/mL (0.34-5.60)
[2021-11-18] MEDS ORDERED: Al Hydrox/Mg Hydrox/Simet LIQ 30 ML UDC PO PRN (10:50)
[2021-11-18] MEDS ORDERED: Albuterol HFA INHALER 8 gm MDI INH PRN (12:20)
[2021-11-18 13:02] LABS: Magnesium 1.9 mg/dL (1.9-2.7)
[2021-11-18 13:13] LABS: Potassium Redraw 4.2 mmol/L (3.5-5.0)
[2021-11-18] MEDS: Insulin ISOPH/REG 70/30 SUBCUT SCH (22:19)
[2021-11-19] MEDS: Insulin ISOPH/REG 70/30 SUBCUT SCH ×3 (09:18→19:55)
[2021-11-19] MEDS: Vitamin THERAPEUTIC TAB PO SCH (09:18)
[2021-11-20] MEDS: Insulin ISOPH/REG 70/30 SUBCUT SCH (09:11)
[2021-11-20] MEDS: Vitamin THERAPEUTIC TAB PO SCH (09:13)
[2021-11-20 19:39] VITALS: BP 152/99
== END 2021-11-20 19:55 | disposition home health service (06) | DRG 883 ==
LOC: ED 20:52 → EDHOLD 11-18 10:50 → BSU 11-18 12:10
PROVIDERS: ADMIT Psychiatry & Neurology Psychiatry; ATTEND Psychiatry & Neurology Psychiatry

== ENCOUNTER 2024-05-02 09:27 | Inpatient (IN) ==
[2024-05-02] MEDS: Furosemide 40 mg/4 ml IV VIAL IV ONE (10:05)
[2024-05-02] MEDS: Labetalol IV 5 MG/ML 20 ml VIAL IV PUSH ONE (10:06)
[2024-05-02 10:12] LABS: ABS Basophils 0.1 10^3/uL (0.0-0.1); ABS Eosinophils 0.2 10^3/uL (0.0-0.5); ABS Monocytes 0.5 10^3/uL (0.0-0.9); ABS Neutrophils 5.3 10^3/uL (1.5-7.6); ABS Nucleated RBC 0.01 10^3/ul; Eosinophil % 2.6 %; Hematocrit 40.7 % (35-45); Lymphocyte % 33.1 %; Mean Corpuscular Hemoglobin 28.2 pg (27-33); Mean Corpuscular Hgb Conc 34.5 g/dL (31-36); Mean Corpuscular Volume 81.8 fL (80-97); Mean Platelet Volume 9.6 fL (7.5-11.2); Nucleated Red Blood Cells % 0.1 %/100WBC (0.0-0.8); Platelet Count 170 10^3/uL (150-450); Red Blood Count 4.97 10^6/uL (3.63-4.92); Red Cell Distribution Width 14.2 % (12-17)
[2024-05-02 10:38] LABS: High Sens Troponin Baseline 19 pg/mL (<15)
[2024-05-02 10:51] LABS: ALT 16 U/L (7-52); AST 16 U/L (13-39); Albumin/Globulin Ratio 1.1 (1-3); Alkaline Phosphatase 101 U/L (35-149); Anion Gap 9 mmol/L (2-16); Blood Urea Nitrogen 11 mg/dL (6-24); CO2 Carbon Dioxide 26 mmol/L (22-32); Calcium 9.6 mg/dL (8.6-10.3); Chloride 102 mmol/L (101-111); Creatinine, Serum 0.76 mg/dL (0.51-0.95); Globulin 3.7 g/dL (2-4); Glucose 207 mg/dL (70-100); Lipase 20 U/L (11.0-82.0); Potassium 4.1 mmol/L (3.5-5.0); Sodium 137 mmol/L (135-145); Total Bilirubin 0.8 mg/dL (0.2-1.0); Total Protein 7.7 g/dL (6.4-8.9); eGFR CKD-EPI 97.8 (>60)
[2024-05-02 10:58] LABS: HCG Pregnancy < 0.60 mIU/mL
[2024-05-02 12:03] LABS: High Sensitivity Troponin 1 Hr 20 pg/mL (<15)
[2024-05-02 12:07] LABS: Urine Appearance Clear; Urine Bilirubin Negative (Negative); Urine Blood Negative (Negative); Urine Color Colorless; Urine Glucose Negative (Negative); Urine Ketones Negative (Negative); Urine Nitrite Negative (Negative); Urine Protein Negative (Negative); Urine Specific Gravity 1.006 (1.002-1.030); Urine Urobilinogen Negative (Negative); Urine pH 5.5 (5.0-8.0)
[2024-05-02] MEDS: Heparin DRIP 25,000 UNITS BAG 25,000 UNITS/250 ML BAG IV SCH (13:39)
[2024-05-02] MEDS: Heparin 5000 UNITS/ML 1 mL VIAL IV SCH (13:39)
[2024-05-02 13:44] LABS: ABS Basophils 0.1 10^3/uL (0.0-0.1); ABS Eosinophils 0.2 10^3/uL (0.0-0.5); ABS Monocytes 0.5 10^3/uL (0.0-0.9); ABS Neutrophils 5.2 10^3/uL (1.5-7.6); ABS Nucleated RBC 0.01 10^3/ul; Eosinophil % 2.3 %; Hematocrit 40.7 % (35-45); Hemoglobin 13.8 g/dL (11.5-14.3); Lymphocyte % 33.3 %; Mean Corpuscular Hemoglobin 27.7 pg (27-33); Mean Corpuscular Volume 81.6 fL (80-97); Mean Platelet Volume 9.7 fL (7.5-11.2); Nucleated Red Blood Cells % 0.1 %/100WBC (0.0-0.8); Platelet Count 172 10^3/uL (150-450); Red Blood Count 4.99 10^6/uL (3.63-4.92); Red Cell Distribution Width 14.4 % (12-17)
[2024-05-02] MEDS: Sulfur Hexaflouride MICROSPHR 25 MG VIAL IV PRN (14:23)
[2024-05-02 14:40] LABS: Creatinine, Serum 0.71 mg/dL (0.51-0.95)
[2024-05-02 14:41] LABS: eGFR CKD-EPI 106.1 (>60)
[2024-05-02] MEDS ORDERED: Dextrose 50% Syringe 50 ml 25 GM/50 ML SYRINGE IV PUSH PRN (16:50)
[2024-05-02] MEDS: Lidocaine 1% MPF 5 ML VIAL INJ ONE (17:12)
[2024-05-02] MEDS: Iohexol 350 (CONTRAST) 500 ML MDV IV ONE (17:13)
[2024-05-02] MEDS: niCARdipine 0.1MG/ML IVPREMIX 20 MG/200 ML BAG IV SCH (17:52)
[2024-05-03 05:03] LABS: ABS Basophils 0.1 10^3/uL (0.0-0.1); ABS Eosinophils 0.2 10^3/uL (0.0-0.5); ABS Lymphocytes 3.7 10^3/uL (1.0-4.8); ABS Monocytes 0.5 10^3/uL (0.0-0.9); ABS Neutrophils 4.7 10^3/uL (1.5-7.6); ABS Nucleated RBC 0.02 10^3/ul; Eosinophil % 2.3 %; Hematocrit 37.9 % (35-45); Hemoglobin 13.1 g/dL (11.5-14.3); Lymphocyte % 40.5 %; Mean Corpuscular Hemoglobin 28.3 pg (27-33); Mean Corpuscular Hgb Conc 34.7 g/dL (31-36); Mean Corpuscular Volume 81.6 fL (80-97); Mean Platelet Volume 9.9 fL (7.5-11.2); Nucleated Red Blood Cells % 0.2 %/100WBC (0.0-0.8); Platelet Count 172 10^3/uL (150-450); Red Blood Count 4.65 10^6/uL (3.63-4.92); Red Cell Distribution Width 14.5 % (12-17); White Blood Count 9.2 10^3/uL (3.8-11.8)
[2024-05-03 06:16] LABS: Calcium 9.2 mg/dL (8.6-10.3); Creatinine, Serum 0.7 mg/dL (0.51-0.95); Magnesium 1.7 mg/dL (1.9-2.7); Potassium 3.7 mmol/L (3.5-5.0)
[2024-05-03] MEDS: Magnesium Sulfate IV 1GM/100ML 1 GM/100 ML BAG IV ONE (08:09)
[2024-05-03] MEDS: Potassium Chlor 20 meq TAB.ER PO ONE (08:32)
[2024-05-03] MEDS: Magnesium Sulfate 2 gm BAG 2 GM/50 ML BAG IVPB ONE (08:40)
[2024-05-03] MEDS ORDERED: Heparin 1,000 UNIT/ML 10 ml (10,000 UNITS) CATHLAB/DIALYSIS ONE (11:30)
[2024-05-03] MEDS ORDERED: fentaNYL 100 mcg/2 ml 50 MCG/ML VIAL ONE (11:30)
[2024-05-03] MEDS ORDERED: Midazolam 5 mg/5 ml VIAL 1 mg/ml 5 ml VIAL (5 mg) ONE (11:30)
[2024-05-03] MEDS ORDERED: Lidocaine 1% VIAL 10 MG/ML 30 ML VIAL ONE (11:31)
[2024-05-03] MEDS ORDERED: Heparin 2 UNITS/ML 1000 mls 2,000 ML IV ONE (11:39)
[2024-05-03] MEDS ORDERED: Naloxone 0.4 mg VIAL 0.4 mg/ml 1 ml VIAL IV PUSH PRN (11:41)
[2024-05-03] MEDS ORDERED: Flumazenil 0.5 mg/5 ml 0.1 MG/ML 5 ml VIAL IV PRN (11:41)
[2024-05-03] MEDS ORDERED: Iohexol 350 (CONTRAST) 100 ML PAK IV ONE ×2 (11:51→12:57)
[2024-05-03] MEDS: fentaNYL 100 mcg/2 ml 50 MCG/ML VIAL IV SLOW PU ONE (13:12)
[2024-05-03] MEDS: Midazolam 10 mg/10 ml VIAL 1 mg/ml 10 ml VIAL (10 mg) IV SLOW PU ONE (13:12)
[2024-05-03] MEDS: DIVALPROEX SPRINKLE 125 MG PO SCH (20:52)
[2024-05-03] MEDS: VALBENAZINE 80 MG PO SCH (21:50)
[2024-05-04 05:06] LABS: ABS Basophils 0.1 10^3/uL (0.0-0.1); ABS Eosinophils 0.3 10^3/uL (0.0-0.5); ABS Lymphocytes 3.6 10^3/uL (1.0-4.8); ABS Monocytes 0.4 10^3/uL (0.0-0.9); ABS Neutrophils 4.9 10^3/uL (1.5-7.6); ABS Nucleated RBC 0.02 10^3/ul; Eosinophil % 3.1 %; Hematocrit 33.5 % (35-45); Hemoglobin 11.4 g/dL (11.5-14.3); Mean Corpuscular Hgb Conc 34.2 g/dL (31-36); Mean Corpuscular Volume 81.9 fL (80-97); Mean Platelet Volume 9.8 fL (7.5-11.2); Nucleated Red Blood Cells % 0.3 %/100WBC (0.0-0.8); Platelet Count 155 10^3/uL (150-450); Red Blood Count 4.09 10^6/uL (3.63-4.92); Red Cell Distribution Width 14.6 % (12-17); White Blood Count 9.3 10^3/uL (3.8-11.8)
[2024-05-04 05:37] LABS: Calcium 8.7 mg/dL (8.6-10.3); Creatinine, Serum 0.78 mg/dL (0.51-0.95); Magnesium 1.8 mg/dL (1.9-2.7); Potassium 4.2 mmol/L (3.5-5.0); eGFR CKD-EPI 94.8 (>60)
[2024-05-04] MEDS: Magnesium Sulfate 2 gm BAG 2 GM/50 ML BAG IVPB ONE (07:43)
[2024-05-05 05:48] LABS: ABS Eosinophils 0.3 10^3/uL (0.0-0.5); ABS Lymphocytes 2.6 10^3/uL (1.0-4.8); ABS Monocytes 0.5 10^3/uL (0.0-0.9); ABS Neutrophils 4.9 10^3/uL (1.5-7.6); ABS Nucleated RBC 0.01 10^3/ul; Lymphocyte % 31.6 %; Mean Corpuscular Hemoglobin 27.8 pg (27-33); Mean Corpuscular Hgb Conc 34.3 g/dL (31-36); Mean Corpuscular Volume 81.1 fL (80-97); Mean Platelet Volume 10.5 fL (7.5-11.2); Nucleated Red Blood Cells % 0.1 %/100WBC (0.0-0.8); Platelet Count 162 10^3/uL (150-450); Red Blood Count 3.95 10^6/uL (3.63-4.92); Red Cell Distribution Width 14.2 % (12-17); White Blood Count 8.3 10^3/uL (3.8-11.8)
[2024-05-05 06:08] LABS: Calcium 8.8 mg/dL (8.6-10.3); Creatinine, Serum 0.72 mg/dL (0.51-0.95); Magnesium 1.6 mg/dL (1.9-2.7); Potassium 4.3 mmol/L (3.5-5.0); eGFR CKD-EPI 104.4 (>60)
[2024-05-05] MEDS: Empagliflozin 25 MG TAB PO SCH (08:32)
[2024-05-05 14:13] VITALS: BP 110/71
[2024-05-05 19:32] LABS: Beta 2 Glycoprotein IgG <9.4 SGU
[2024-05-07 13:31] LABS: Phospholipid Ab IgG < 9.4 GPL; Phospholipid Ab IgM, S < 9.4 MPL
== END 2024-05-05 13:50 | disposition home or self-care (01) | DRG 164 ==
LOC: ED 09:27 → SUATTDRO 14:34 → EDHOLD 14:34 → ICU 15:39 → MED 16:25
PROVIDERS: ADMIT Internal Medicine Pulmonary Disease; ATTEND Student in an Organized Health Care Education/Training Program

== ENCOUNTER 2024-05-07 11:09 | Inpatient (IN) ==
[2024-05-07 14:09] LABS: ABS Basophils 0.1 10^3/uL (0.0-0.1); ABS Eosinophils 0.2 10^3/uL (0.0-0.5); ABS Lymphocytes 3.4 10^3/uL (1.0-4.8); ABS Monocytes 0.5 10^3/uL (0.0-0.9); ABS Neutrophils 5.4 10^3/uL (1.5-7.6); ABS Nucleated RBC 0.01 10^3/ul; Hematocrit 38.3 % (35-45); Hemoglobin 13.1 g/dL (11.5-14.3); Lymphocyte % 35.9 %; Mean Corpuscular Hemoglobin 27.8 pg (27-33); Mean Corpuscular Hgb Conc 34.2 g/dL (31-36); Mean Corpuscular Volume 81.4 fL (80-97); Mean Platelet Volume 10.2 fL (7.5-11.2); Nucleated Red Blood Cells % 0.1 %/100WBC (0.0-0.8); Platelet Count 220 10^3/uL (150-450); Red Cell Distribution Width 14.4 % (12-17); White Blood Count 9.6 10^3/uL (3.8-11.8)
[2024-05-07 14:38] LABS: Urine Benzodiazepine Screen None Detected (None Detect); Urine Cannabinoids Screen None Detected (None Detect); Urine Opiates Screen None Detected (None Detect)
[2024-05-07 14:48] LABS: Urine Appearance Clear; Urine Bilirubin Negative (Negative); Urine Blood Negative (Negative); Urine Color Light-Yellow; Urine Glucose 4+ (>=1000 mg/dL) (Negative); Urine Ketones Trace (Negative); Urine Nitrite Negative (Negative); Urine Protein Negative (Negative); Urine Urobilinogen Negative (Negative); Urine pH 5.5 (5.0-8.0)
[2024-05-07 14:53] LABS: ALT 25 U/L (7-52); AST 19 U/L (13-39); Albumin 4.4 g/dL (3.2-5.2); Albumin/Globulin Ratio 1.2 (1-3); Alcohol, S < 13 mg/dL (<13); Alkaline Phosphatase 102 U/L (35-149); Anion Gap 10 mmol/L (2-16); Blood Urea Nitrogen 12 mg/dL (6-24); CO2 Carbon Dioxide 28 mmol/L (22-32); Calcium 10.5 mg/dL (8.6-10.3); Chloride 99 mmol/L (101-111); Creatinine, Serum 0.84 mg/dL (0.51-0.95); Globulin 3.8 g/dL (2-4); Glucose 184 mg/dL (70-100); Potassium 4.6 mmol/L (3.5-5.0); Sodium 137 mmol/L (135-145); Total Bilirubin 0.6 mg/dL (0.2-1.0); Total Protein 8.2 g/dL (6.4-8.9); eGFR CKD-EPI 86.7 (>60)
[2024-05-07 14:58] LABS: HCG Pregnancy < 0.60 mIU/mL
[2024-05-07] MEDS ORDERED: Al Hydrox/Mg Hydrox/Simet LIQ 30 ML UDC PO PRN (21:33)
[2024-05-07] MEDS ORDERED: Albuterol HFA INHALER 8 gm MDI INH PRN (22:21)
[2024-05-07 22:30] VITALS: BP 96/65
[2024-05-08 08:10] LABS: HDL Cholesterol 28.5 mg/dL
[2024-05-08] MEDS: Vitamin THERAPEUTIC TAB PO SCH (11:03)
== END 2024-05-08 14:00 | disposition home or self-care (01) | DRG 880 ==
LOC: ED 11:09 → BSU 20:57 → EDHOLD 21:18 → BSU 21:30
PROVIDERS: ADMIT Psychiatry & Neurology Psychiatry; ATTEND Student in an Organized Health Care Education/Training Program